=== PATIENT | female | born 1950 | race Caucasian/White ===

== ENCOUNTER 2017-01-03 13:42 | Emergency (ER) | payer MEDICARE, MEDICAID ==
[2017-01-03 14:31] VITALS: BP 141/77
--- NOTE | 2017-01-03 15:34 | EDM.PDOC ---
ED HPI GENERAL MEDICAL PROBLEM - General Chief Complaint: General Stated Complaint: ABNORMAL EKG Time Seen by Provider: 01/03/17 14:45 Source of Information: Reports: Patient, Provider History Limitations: Reports: No Limitations - History of Present Illness INITIAL COMMENTS - FREE TEXT/NARRATIVE: 66-year-old female who is having follow-up with her mental health provider 2 weeks ago mention to her that she was having intermittent chest pain. She describes to me that she's had it twice in the last year, unrelated to activity. Her provider asked her to come in and provide an EKG at her convenience, she came in to have that done today. The EKG showed some nonspecific T-wave changes, this was showed to Dr. Duron and he sent her to the emergency room. The EKG was not sent with the patient. She has not had any symptoms or pain for the last couple of weeks. Onset: Unknown/Unsure Location: Reports: Chest Severity: Mild Associated Symptoms: Reports: No Other Symptoms - Related Data Allergies Allergy/AdvReac Type Severity Reaction Status Date / Time bacitracin Allergy Severe Rash Verified 01/03/17 14:43 [From Neosporin ([id number])] bacitracin zinc Allergy Severe Rash Verified 01/03/17 14:43 [From Neosporin ([id number]-[id number])] neomycin sulfate Allergy Severe Rash Verified 01/03/17 14:43 [From Neosporin (ypm-tsq-dpuos)] polymyxin B Allergy Severe Rash Verified 01/03/17 14:43 [From Neosporin ([id number]-[id number])] nickel Allergy Cannot Verified 01/03/17 14:43 Remember Home Meds: Home Meds Acetaminophen 1,000 mg PO BID 09/27/14 [History] Aspirin [[place] Aspirin] 81 mg PO DAILY 09/27/14 [History] Levothyroxine 125 mcg PO DAILY 09/27/14 [History] Lisinopril 5 mg PO BID 09/27/14 [History] Metoprolol Tartrate 25 mg PO BID 09/27/14 [History] Mirtazapine 7.5 mg PO DAILY 09/27/14 [History] Montelukast Sodium 10 mg PO DAILY 09/27/14 [History] Multivit-Min/FA/Lycopene/Lut [Centrum Silver Tablet] 1 each PO DAILY 09/27/14 [ History] Niacin [Niacin ER] 500 mg PO DAILY 09/27/14 [History] Penicillin V Potassium 2,000 mg PO ASDIRECTED PRN 09/27/14 [History] Simvastatin [Zocor] 40 mg PO DAILY 09/27/14 [History] Trifluoperazine 5 mg PO BID 09/27/14 [History] glipiZIDE [Glipizide ER] 5 mg PO DAILY 09/27/14 [History] medroxyPROGESTERone [Provera] 10 mg PO DAILY 09/27/14 [History] metFORMIN HCl [Metformin HCl] 1,000 mg PO BID 09/27/14 [History] Albuterol [Proventil HFA] 2 puff INH QID PRN 01/03/17 [History] Benztropine [Cogentin] 1 mg PO BEDTIME 01/03/17 [History] Bismuth Subsalicylate [Pepto Bismol] 262 mg PO ASDIRECTED 01/03/17 [History] Dextromethorphan/guaiFENesin [Robitussin DM] 1 - 2 tsp PO ASDIRECTED 01/03/17 [ History] Diazepam [Valium] 1 tab PO BID PRN 01/03/17 [History] Nystatin 1 dose TOP ASDIRECTED 01/03/17 [History] Oxybutynin 2.5 mg PO BID 01/03/17 [History] Ranitidine HCl [Zantac] 1 tab PO BEDTIME 01/03/17 [History] Trifluoperazine 2 mg PO DAILY 01/03/17 [History] Past Medical History Other HEENT History: balance problems Cardiovascular History: Reports: High Cholesterol, Hypertension, Other (See Below) Other Cardiovascular History: inoperable aortic aneurysm. Musculoskeletal History: Reports: Arthritis Other Musculoskeletal History: degenerative joint disease. Other Neuro History: multifactorial imbalance, possible cerebellar atrophy. Other Psychiatric History: borderline personality disorder, periods of derrick Endocrine/Metabolic History: Reports: Diabetes, Type II, Hypothyroidism Social & Family History - Tobacco Use Smoking Status *Q: Heavy Tobacco Smoker Years of Tobacco use: 32 Packs/Tins Daily: 0.8 - Recreational Drug Use Recreational Drug Use: No ED ROS GENERAL - Review of Systems Review Of Systems: See Below Constitutional: Denies: Fever, Chills, Malaise Respiratory: Denies: Shortness of Breath Cardiovascular: Reports: Chest Pain GI/Abdominal: Denies: Nausea, Vomiting : Reports: No Symptoms Skin: Reports: No Symptoms Neurological: Denies: Headache ED EXAM, GENERAL - Physical Exam Exam: See Below Exam Limited By: No Limitations General Appearance: Alert, No Apparent Distress Respiratory/Chest: No Respiratory Distress, Lungs Clear, Other (She does have a little bit of discomfort with palpation of the anterior chest wall but it is not the same pain that she was complaining of) Cardiovascular: Regular Rate, Rhythm. No: Extra Beats GI/Abdominal: Soft, Non-Tender Neurological: Alert, Oriented Psychiatric: Normal Affect, Normal Mood Skin Exam: Warm, Dry EKG INTERPRETATION Rhythm: NSR ST-T: Other (Minimal T-wave changes from previous, no ST elevation or depression ) Course - Vital Signs Last Recorded V/S: Last Vital Signs Temp 98.1 F 01/03/17 14:40 Pulse 81 01/03/17 14:40 Resp 19 01/03/17 14:40 BP 141/77 H 01/03/17 14:40 Pulse Ox 95 01/03/17 14:40 - Re-Assessments/Exams Free Text/Narrative Re-Assessment/Exam: 01/03/17 15:34 This patient wants as little as possible done, but I do think it would be reasonable to do a chemically induced stress test. This can be done at the patient's convenience. This will be arranged with results being sent to Dr. Duron and Kelly Bernardo Departure - Departure Time of Disposition: 15:48 Disposition: Home, Self-Care 01 Condition: Good Clinical Impression: Atypical chest pain - Discharge Information Instructions: Nonspecific Chest Pain, [id number] Referrals: Livia Bernardo PA [Primary Care Provider] - Forms: ED Department Discharge Care Plan Goals: Continue your current medications and activity. Stress test will be scheduled in the near future, follow-up with Kelly Bernardo after the test is completed.
== END 2017-01-03 15:48 | disposition home or self-care (01) ==
LOC: JP.ED 13:42
DX: R07.89 Other chest pain (principal); I10 Essential (primary) hypertension; E11.9 Type 2 diabetes mellitus without complications; E03.9 Hypothyroidism, unspecified; Z79.82 Long term (current) use of aspirin; Z79.84 Long term (current) use of oral hypoglycemic drugs; Z79.899 Other long term (current) drug therapy; Z91.09 Other allergy status, other than to drugs and biological substances; Z88.1 Allergy status to other antibiotic agents; Z88.8 Allergy status to other drugs, medicaments and biological substances
CPT/HCPCS: 99284; 99285

== ENCOUNTER 2018-02-28 20:09 | Emergency (ER) | payer MEDICARE, MEDICAID ==
[2018-02-28] MEDS ORDERED: Bacitracin Oint 1 GM U/D Packet TOP ONE (20:40)
[2018-02-28 20:53] VITALS: BP 138/71
--- NOTE | 2018-02-28 21:24 | EDM.PDOC ---
ED HPI GENERAL MEDICAL PROBLEM - General Chief Complaint: Laceration Stated Complaint: [facility] Time Seen by Provider: 02/28/18 21:14 Source of Information: Reports: Patient, EMS History Limitations: Reports: No Limitations - History of Present Illness INITIAL COMMENTS - FREE TEXT/NARRATIVE: pt fell going to the kitchen ans she hit the upper lipm area. She did do alot of bleeding. She was not knocked out. Onset: Today, Sudden Duration: Hour(s): Location: Reports: Face Associated Symptoms: Reports: Other (laceration of the upper lip area. ) - Related Data Allergies Allergy/AdvReac Type Severity Reaction Status Date / Time bacitracin Allergy Severe Rash Verified 02/28/18 21:05 [From Neosporin ([id number]-iif-vfhqi)] bacitracin zinc Allergy Severe Rash Verified 02/28/18 21:05 [From Neosporin (qna-ocw-gaudg)] neomycin sulfate Allergy Severe Rash Verified 02/28/18 21:05 [From Neosporin (mwe-ekm-iadsp)] polymyxin B Allergy Severe Rash Verified 02/28/18 21:05 [From Neosporin (fon-yhn-nxitf)] nickel Allergy Cannot Verified 02/28/18 21:05 Remember Home Meds: Home Meds Acetaminophen 1,000 mg PO BID 09/27/14 [History] Aspirin [[place] Aspirin] 81 mg PO DAILY 09/27/14 [History] Levothyroxine 125 mcg PO DAILY 09/27/14 [History] Lisinopril 5 mg PO BID 09/27/14 [History] Metoprolol Tartrate 25 mg PO BID 09/27/14 [History] Mirtazapine 7.5 mg PO DAILY 09/27/14 [History] Montelukast Sodium 10 mg PO DAILY 09/27/14 [History] Multivit-Min/FA/Lycopene/Lut [Centrum Silver Tablet] 1 each PO DAILY 09/27/14 [ History] Niacin [Niacin ER] 500 mg PO DAILY 09/27/14 [History] Penicillin V Potassium 2,000 mg PO ASDIRECTED PRN 09/27/14 [History] Simvastatin [Zocor] 40 mg PO DAILY 09/27/14 [History] Trifluoperazine 5 mg PO BID 09/27/14 [History] glipiZIDE [Glipizide ER] 5 mg PO DAILY 09/27/14 [History] medroxyPROGESTERone [Provera] 10 mg PO DAILY 09/27/14 [History] metFORMIN HCl [Metformin HCl] 1,000 mg PO BID 09/27/14 [History] Albuterol [Proventil HFA] 2 puff INH QID PRN 01/03/17 [History] Benztropine [Cogentin] 1 mg PO BEDTIME 01/03/17 [History] Bismuth Subsalicylate [Pepto Bismol] 262 mg PO ASDIRECTED 01/03/17 [History] Dextromethorphan/guaiFENesin [Robitussin DM] 1 - 2 tsp PO ASDIRECTED 01/03/17 [ History] Diazepam [Valium] 1 tab PO BID PRN 01/03/17 [History] Nystatin 1 dose TOP ASDIRECTED 01/03/17 [History] Oxybutynin 2.5 mg PO BID 01/03/17 [History] Ranitidine HCl [Zantac] 1 tab PO BEDTIME 01/03/17 [History] Trifluoperazine 2 mg PO DAILY 01/03/17 [History] Past Medical History Other HEENT History: balance problems Cardiovascular History: Reports: High Cholesterol, Hypertension, Other (See Below) Other Cardiovascular History: inoperable aortic aneurysm. Musculoskeletal History: Reports: Arthritis Other Musculoskeletal History: degenerative joint disease. Other Neuro History: multifactorial imbalance, possible cerebellar atrophy. Other Psychiatric History: borderline personality disorder, periods of derrick Endocrine/Metabolic History: Reports: Diabetes, Type II, Hypothyroidism Social & Family History - Tobacco Use Smoking Status *Q: Current Every Day Smoker Years of Tobacco use: 45 Packs/Tins Daily: 0.5 Tobacco Use Comment: quit smoking a few days ago- using nicotine patch - Caffeine Use Caffeine Use: Reports: Coffee - Recreational Drug Use Recreational Drug Use: No ED ROS GENERAL - Review of Systems Review Of Systems: See Below Constitutional: Reports: No Symptoms HEENT: Reports: Other (laceration just under the nose. ) Respiratory: Reports: No Symptoms Cardiovascular: Reports: No Symptoms Endocrine: Reports: No Symptoms GI/Abdominal: Reports: No Symptoms : Reports: No Symptoms ED EXAM, SKIN/RASH Exam: See Below Text/Narrative:: pt has a 1 inch laceration under the nose area. Exam Limited By: No Limitations General Appearance: Alert, Anxious, Mild Distress Nose: Other (pt has a 1 inch laceration under the nose. This was not a through and through laceration. She does have some swelling of the inner upper lip with bruising. ) Throat/Mouth: Normal Inspection Head: Atraumatic, Other (pt was not knocked out. ) Neck: Normal Inspection Respiratory/Chest: No Respiratory Distress Cardiovascular: Regular Rate, Rhythm Course - Vital Signs Last Recorded V/S: Last Vital Signs Temp 36.8 C 02/28/18 21:08 Pulse 77 02/28/18 21:08 Resp 20 02/28/18 21:08 BP 138/71 02/28/18 21:08 Pulse Ox 97 02/28/18 21:08 - Orders/Labs/Meds Meds: Medications Discontinued Medications Generic Name Dose Route Start Last Admin Trade Name Bridgerq PRN Reason Stop Dose Admin Bacitracin 1 dose 02/28/18 20:40 02/28/18 21:45 Bacitracin Oint 1 Gm TOP 02/28/18 20:41 Not Given ONETIME ONE Lidocaine HCl 5 ml 02/28/18 20:39 02/28/18 21:14 Xylocaine-Mpf 1% INJECT 02/28/18 20:40 5 ml ONETIME ONE Administration - Re-Assessments/Exams Free Text/Narrative Re-Assessment/Exam: 02/28/18 21:34 pt is current with her tetanus. She has a 1 inch laceration under her nose area. The wound was cleansed well and pt requested no lidocaine. The wound was sutured with 5-0 chromic and 6-0 prolene. It was brought together nicely . She is allergic to most antibiotic ointments. She was dressed with a dry dressing. Departure - Departure Time of Disposition: 21:36 Disposition: Home, Self-Care 01 Condition: Fair Clinical Impression: Laceration - Discharge Information Instructions: Laceration Care, Adult, [id number] Referrals: PCP,None [Primary Care Provider] - Forms: ED Department Discharge Care Plan Goals: sr removal in 5-6 days. keep dry. rtc if redness or drainage.
== END 2018-02-28 21:51 | disposition home or self-care (01) ==
LOC: JP.ED 20:09
DX: S01.511A Laceration without foreign body of lip, initial encounter (principal); F17.210 Nicotine dependence, cigarettes, uncomplicated; E78.00 Pure hypercholesterolemia, unspecified; I10 Essential (primary) hypertension; E03.9 Hypothyroidism, unspecified; E11.9 Type 2 diabetes mellitus without complications; Z79.82 Long term (current) use of aspirin; Z79.84 Long term (current) use of oral hypoglycemic drugs; Z79.899 Other long term (current) drug therapy; W18.30XA Fall on same level, unspecified, initial encounter; Y92.000 Kitchen of unspecified non-institutional (private) residence as the place of occurrence of the external cause
CPT/HCPCS: 12011; 99284-25

== ENCOUNTER 2019-05-14 12:50 | Emergency (ER) | payer MEDICARE, MEDICAID ==
--- NOTE | 2019-05-14 14:31 | EDM.PDOCBH ---
<Grace Rayo - Last Filed: 05/14/19 15:36> ED HPI GENERAL MEDICAL PROBLEM - General Chief Complaint: Behavioral/Psych Stated Complaint: OFF MEDS Time Seen by Provider: 05/14/19 14:26 Source of Information: Reports: Patient History Limitations: Reports: No Limitations - History of Present Illness INITIAL COMMENTS - FREE TEXT/NARRATIVE: pt arrived by ambulance from the detention where she lives. She has been very out of control. Kaylee Jackson ashli a transport hold for her to come and be evaluated. She hs been very Manic. She has stopped taking her meds. It is Shane opinion that she needs to be in a in pt management for med changes. Onset: Today, Other (pt was very out of control today. The situation is not safe for otherr pts. ) Duration: Hour(s): Location: Reports: Generalized Associated Symptoms: Reports: Other (pt has been out of control with other pts. ) - Related Data Allergies Allergy/AdvReac Type Severity Reaction Status Date / Time bacitracin Allergy Severe Rash Verified 05/14/19 13:24 [From Neosporin ([id number])] bacitracin zinc Allergy Severe Rash Verified 05/14/19 13:24 [From Neosporin (yji-kfh-tvata)] neomycin sulfate Allergy Severe Rash Verified 05/14/19 13:24 [From Neosporin ([id number]-qrw-oagwg)] polymyxin B Allergy Severe Rash Verified 05/14/19 13:24 [From Neosporin ([id number]-mcc-crvpm)] nickel Allergy Cannot Verified 05/14/19 13:24 Remember Home Meds: Home Meds Acetaminophen 1,000 mg PO BID 09/27/14 [History] Aspirin [[place] Aspirin] 81 mg PO DAILY 09/27/14 [History] Levothyroxine 125 mcg PO DAILY 09/27/14 [History] Lisinopril 5 mg PO BID 09/27/14 [History] Multivit-Min/FA/Lycopen/Lutein [Centrum Silver Tablet] 1 each PO DAILY 09/27/14 [History] Niacin [Niacin ER] 500 mg PO DAILY 09/27/14 [History] Penicillin V Potassium 2,000 mg PO ASDIRECTED PRN 09/27/14 [History] Simvastatin [Zocor] 40 mg PO DAILY 09/27/14 [History] glipiZIDE [Glipizide ER] 5 mg PO DAILY 09/27/14 [History] medroxyPROGESTERone [Provera] 10 mg PO DAILY 09/27/14 [History] metFORMIN HCl [Metformin HCl] 1,000 mg PO BID 09/27/14 [History] Albuterol [Proventil HFA] 2 puff INH QID PRN 01/03/17 [History] Benztropine [Cogentin] 1 mg PO BEDTIME 01/03/17 [History] Bismuth Subsalicylate [Pepto Bismol] 262 mg PO ASDIRECTED 01/03/17 [History] Diazepam [Valium] 1 tab PO BID PRN 01/03/17 [History] Oxybutynin 2.5 mg PO BID 01/03/17 [History] Ranitidine HCl [Zantac] 1 tab PO BEDTIME 01/03/17 [History] Metoprolol Succinate [Toprol XL] 25 mg PO DAILY 05/14/19 [History] Perphenazine 4 mg PO DAILY 05/14/19 [History] Perphenazine 8 mg PO BEDTIME 05/14/19 [History] amLODIPine [Norvasc] 2.5 mg PO DAILY 05/14/19 [History] lamoTRIgine [Lamictal] 100 mg PO DAILY 05/14/19 [History] Past Medical History Other HEENT History: balance problems Cardiovascular History: Reports: High Cholesterol, Hypertension, Other (See Below) Other Cardiovascular History: inoperable aortic aneurysm. Musculoskeletal History: Reports: Arthritis Other Musculoskeletal History: degenerative joint disease. Other Neuro History: multifactorial imbalance, possible cerebellar atrophy. Psychiatric History: Reports: Schizophrenia Other Psychiatric History: borderline personality disorder, periods of derrick Endocrine/Metabolic History: Reports: Diabetes, Type II, Hypothyroidism Social & Family History - Tobacco Use Smoking Status *Q: Unknown Ever Smoked - Caffeine Use Caffeine Use: Reports: None - Recreational Drug Use Recreational Drug Use: No ED ROS GENERAL - Review of Systems Review Of Systems: See Below Constitutional: Reports: Other (pt is out of control) HEENT: Reports: No Symptoms Respiratory: Reports: No Symptoms Cardiovascular: Reports: No Symptoms Endocrine: Reports: No Symptoms GI/Abdominal: Reports: No Symptoms : Reports: No Symptoms Musculoskeletal: Reports: No Symptoms Skin: Reports: No Symptoms Neurological: Reports: No Symptoms Psychiatric: Reports: Agitation, Anxiety, Other (pt is out of control and is leaving the facility with her scooter and does not return. ) ED EXAM, BEHAVIORAL HEALTH - Physical Exam Exam: See Below Text/Narrative:: pt has been very out of control, not taking meds. She is refusing any med changes. Her Derrick has been intolerable in the detention. She has been leaving and not returning. Exam Limited By: No Limitations General Appearance: Alert, Anxious, Moderate Distress Ears: Normal TMs Nose: Normal Inspection Throat/Mouth: Normal Inspection Neck: Normal Inspection Respiratory/Chest: No Respiratory Distress Cardiovascular: Regular Rate, Rhythm GI/Abdominal: Soft, Non-Tender (Female) Exam: Deferred, Other ( since she has been so manic she has lost alot of weight. ) Rectal (Female) Exam: Deferred Neurological: Alert, Other (pt is swearing and is quite out of control. She is not physically trying to harm anyone. ) Psychiatric: Alert COURSE, BEHAVIORAL HEALTH COMP - Course Orders, Labs, Meds: Laboratory Tests 05/14/19 05/14/19 05/14/19 Range/Units 13:12 13:12 13:12 WBC 7.6 (4.5-11.0) K/uL RBC 3.88 (3.30-5.50) M/uL Hgb 11.7 L (12.0-15.0) g/dL Hct 37.6 (36.0-48.0) % MCV 97 (80-98) fL MCH 30 (27-31) pg MCHC 31 L (32-36) % Plt Count 207 (150-400) K/uL Neut % (Auto) 67 H (36-66) % Lymph % (Auto) 25 (24-44) % Isabela % (Auto) 7 H (2-6) % Eos % (Auto) 1 L (2-4) % Baso % (Auto) 0 (0-1) % Sodium 139 L (140-148) mmol/L Potassium 4.1 (3.6-5.2) mmol/L Chloride 100 (100-108) mmol/L Carbon Dioxide 29 (21-32) mmol/L Anion Gap 14.1 H (5.0-14.0) mmol/L BUN 24 H (7-18) mg/dL Creatinine 1.0 (0.6-1.0) mg/dL Est Cr Clr Drug Dosing TNP Estimated GFR (MDRD) 55 L (>60) Glucose 224 H (74-106) mg/dL Calcium 9.7 (8.5-10.1) mg/dL Total Bilirubin 0.3 (0.2-1.0) mg/dL AST 14 L (15-37) U/L ALT 21 (12-78) U/L Alkaline Phosphatase 85 (46-116) U/L Total Protein 6.7 (6.4-8.2) g/dL Albumin 3.2 L (3.4-5.0) g/dL Globulin 3.5 (2.3-3.5) g/dL Albumin/Globulin Ratio 0.9 L (1.2-2.2) TSH, Ultra Sensitive (0.358-3.740) uIU/mL Urine Color (YELLOW) Urine Appearance (CLEAR) Urine pH (5.0-8.0) Ur Specific Dowell (1.008-1.030) Urine Protein (NEGATIVE) mg/dL Urine Glucose (UA) (NEGATIVE) mg/dL Urine Ketones (NEGATIVE) mg/dL Urine Occult Blood (NEGATIVE) Urine Nitrite (NEGATIVE) Urine Bilirubin (NEGATIVE) Urine Urobilinogen (0.2-1.0) EU/dL Ur Leukocyte Esterase (NEGATIVE) Urine RBC (0-5) Urine WBC (0-5) Ur Epithelial Cells Amorphous Sediment Urine Bacteria Urine Mucus Urine Opiates Screen (NEGATIVE) Ur Oxycodone Screen (NEGATIVE) Urine Methadone Screen (NEGATIVE) Ur Propoxyphene Screen (NEGATIVE) Ur Barbiturates Screen (NEGATIVE) Ur Tricyclics Screen (NEGATIVE) Ur Phencyclidine Scrn (NEGATIVE) Ur Amphetamine Screen (NEGATIVE) U Methamphetamines Scrn (NEGATIVE) Urine MDMA Screen (NEGATIVE) U Benzodiazepines Scrn (NEGATIVE) U Cocaine Metab Screen (NEGATIVE) U Marijuana (THC) Screen (NEGATIVE) Ethyl Alcohol < 3 mg/dL 05/14/19 05/14/19 05/14/19 Range/Units 13:45 13:45 14:25 WBC (4.5-11.0) K/uL RBC (3.30-5.50) M/uL Hgb (12.0-15.0) g/dL Hct (36.0-48.0) % MCV (80-98) fL MCH (27-31) pg MCHC (32-36) % Plt Count (150-400) K/uL Neut % (Auto) (36-66) % Lymph % (Auto) (24-44) % Isabela % (Auto) (2-6) % Eos % (Auto) (2-4) % Baso % (Auto) (0-1) % Sodium (140-148) mmol/L Potassium (3.6-5.2) mmol/L Chloride (100-108) mmol/L Carbon Dioxide (21-32) mmol/L Anion Gap (5.0-14.0) mmol/L BUN (7-18) mg/dL Creatinine (0.6-1.0) mg/dL Est Cr Clr Drug Dosing Estimated GFR (MDRD) (>60) Glucose (74-106) mg/dL Calcium (8.5-10.1) mg/dL Total Bilirubin (0.2-1.0) mg/dL AST (15-37) U/L ALT (12-78) U/L Alkaline Phosphatase (46-116) U/L Total Protein (6.4-8.2) g/dL Albumin (3.4-5.0) g/dL Globulin (2.3-3.5) g/dL Albumin/Globulin Ratio (1.2-2.2) TSH, Ultra Sensitive 1.692 (0.358-3.740) uIU/mL Urine Color Yellow (YELLOW) Urine Appearance Slightly cloudy A (CLEAR) Urine pH 7.0 (5.0-8.0) Ur Specific Dowell 1.020 (1.008-1.030) Urine Protein Negative (NEGATIVE) mg/dL Urine Glucose (UA) Negative (NEGATIVE) mg/dL Urine Ketones Negative (NEGATIVE) mg/dL Urine Occult Blood Negative (NEGATIVE) Urine Nitrite Negative (NEGATIVE) Urine Bilirubin Negative (NEGATIVE) Urine Urobilinogen 0.2 (0.2-1.0) EU/dL Ur Leukocyte Esterase Small H (NEGATIVE) Urine RBC 0-5 (0-5) Urine WBC 0-5 (0-5) Ur Epithelial Cells Few Amorphous Sediment Few Urine Bacteria Not seen Urine Mucus Not seen Urine Opiates Screen Negative (NEGATIVE) Ur Oxycodone Screen Negative (NEGATIVE) Urine Methadone Screen Negative (NEGATIVE) Ur Propoxyphene Screen Negative (NEGATIVE) Ur Barbiturates Screen Negative (NEGATIVE) Ur Tricyclics Screen Negative (NEGATIVE) Ur Phencyclidine Scrn Negative (NEGATIVE) Ur Amphetamine Screen Negative (NEGATIVE) U Methamphetamines Scrn Negative (NEGATIVE) Urine MDMA Screen Negative (NEGATIVE) U Benzodiazepines Scrn Negative (NEGATIVE) U Cocaine Metab Screen Negative (NEGATIVE) U Marijuana (THC) Screen Negative (NEGATIVE) Ethyl Alcohol mg/dL Medications Discontinued Medications Generic Name Dose Route Start Last Admin Trade Name Fretera PRN Reason Stop Dose Admin Acetaminophen 1,000 mg 05/14/19 22:48 05/14/19 23:49 Tylenol Extra Strength PO 05/14/19 22:49 1,000 mg ONETIME ONE Administration Benztropine Mesylate 1 mg 05/14/19 22:25 05/14/19 22:44 Cogentin PO 05/14/19 22:26 1 mg ONETIME ONE Administration Diazepam 5 mg 05/14/19 16:25 05/14/19 17:01 Valium. PO 05/14/19 16:26 Not Given ONETIME ONE Diazepam 5 mg 05/14/19 22:25 05/15/19 00:02 Valium. PO 05/14/19 22:26 Not Given ONETIME ONE Glipizide 5 mg 05/14/19 18:05 05/14/19 18:18 Glucotrol Xl PO 05/14/19 18:06 5 mg ONETIME ONE Administration Glipizide Confirm 05/14/19 19:20 05/14/19 19:27 Glucotrol Xl Administered 05/14/19 19:21 Not Given Dose 5 mg .ROUTE .STK-MED ONE Haloperidol 5 mg 05/14/19 22:39 05/15/19 00:01 Haldol PO 05/14/19 22:40 Not Given ONETIME ONE Lamotrigine 100 mg 05/14/19 16:25 05/14/19 17:00 Lamotrigine PO 05/14/19 16:26 Not Given ONETIME ONE Metformin HCl 1,000 mg 05/14/19 18:04 05/14/19 18:18 Glucophage PO 05/14/19 18:05 1,000 mg ONETIME ONE Administration Medical Clearance: 05/14/19 14:36 lab work looks good. BS is 224. drug screen is neg. etoh is neg. 05/14/19 14:37 Will try to find placement for her at [facility] in [place]. 05/14/19 15:36 Departure - Departure Disposition: DC/Tfer to [facility] Clinical Impression: Bipolar 1 disorder, manic, moderate Schizophrenia Qualifiers: Schizophrenia type: schizophreniform disorder Qualified Code(s): F20.81 - Schizophreniform disorder - Discharge Information Instructions: Schizophrenia Referrals: PCP,None [Primary Care Provider] - Forms: ED Department Discharge Care Plan Goals: Patient will be transferred back to her detention where hopefully she will eventually be referred to a [facility] inpatient facility when available. Sepsis Event Note - Focused Exam Date Exam was Performed: 05/14/19 Time Exam was Performed: 15:36 <Suresh Melton - Last Filed: 05/15/19 01:11> COURSE, BEHAVIORAL HEALTH COMP - Course Medical Clearance: 05/15/19 00:11 After 6 [address] of [address] to [address] this patient into an inpatient facility, we could not get her into a state facility because they were "full", and we could not get her accepted into a private facility because commitment processes were already started by the [facility] which made it some type of legality for the private facilities. Dr. Virk, medical esthetician of the [facility] psychiatric services was very helpful in attempting to try to place this patient, but we were unsuccessful. She was eventually transferred back to her detention where hopefully they can expedite a placement into [facility]. She was not cooperative with taking her regular medications, but did take acetaminophen and Cogentin. She continued to be mildly agitated and disruptive but did slowly calm down over time. Departure - Departure Time of Disposition: 00:48 Sepsis Event Note - Focused Exam Date Exam was Performed: 05/15/19 Time Exam was Performed: 01:10
[2019-05-14] MEDS ORDERED: Diazepam 5 MG Tab PO ONE ×2 (16:25→22:25)
[2019-05-14] MEDS ORDERED: lamoTRIgine 100 MG Tab PO ONE (16:25)
[2019-05-14] MEDS ORDERED: metFORMIN 500 MG Tab PO ONE (18:04)
[2019-05-14] MEDS ORDERED: glipiZIDE 5 MG Tab.ER PO ONE (18:05)
[2019-05-14] MEDS ORDERED: glipiZIDE 5 MG Tab.ER ONE (19:20)
[2019-05-14] MEDS ORDERED: Benztropine 1 MG Tab PO ONE (22:25)
[2019-05-14] MEDS ORDERED: Haloperidol 5 MG Tab PO ONE (22:39)
[2019-05-14] MEDS ORDERED: Acetaminophen 500 MG Tab PO ONE (22:48)
== END 2019-05-15 00:47 ==
LOC: JP.ED 12:50
DX: F20.81 Schizophreniform disorder (principal); I10 Essential (primary) hypertension; E78.00 Pure hypercholesterolemia, unspecified; E11.9 Type 2 diabetes mellitus without complications; E03.9 Hypothyroidism, unspecified; Z79.84 Long term (current) use of oral hypoglycemic drugs; Z88.1 Allergy status to other antibiotic agents; Z88.8 Allergy status to other drugs, medicaments and biological substances; Z79.82 Long term (current) use of aspirin; Z79.899 Other long term (current) drug therapy
CPT/HCPCS: 36415; 80053; 80305; 80307; 81001; 84443; 85025; 99284; 99285; A9270

== ENCOUNTER 2019-06-19 15:55 | Emergency (ER) | payer MEDICARE, MEDICAID ==
[2019-06-19] MEDS ORDERED: metFORMIN 500 MG Tab ONE (19:10)
[2019-06-19] MEDS ORDERED: glipiZIDE 5 MG Tab.ER ONE (19:13)
[2019-06-19] MEDS ORDERED: Ibuprofen 400 MG Tab PO ONE (21:58)
[2019-06-20] MEDS ORDERED: lamoTRIgine 100 MG Tab PO ONE (00:28)
[2019-06-20] MEDS ORDERED: risperiDONE 1 MG Tab PO STA (00:29)
--- NOTE | 2019-06-20 00:30 | EDM.PDOCBH ---
<Sudheer Jolley G - Last Filed: 06/20/19 00:30> ED HPI GENERAL MEDICAL PROBLEM - General Chief Complaint: Behavioral/Psych Stated Complaint: EVAL Time Seen by Provider: 06/20/19 08:18 - Related Data Allergies Allergy/AdvReac Type Severity Reaction Status Date / Time bacitracin Allergy Severe Rash Verified 05/14/19 13:24 [From Neosporin ([id number])] bacitracin zinc Allergy Severe Rash Verified 05/14/19 13:24 [From Neosporin ([id number])] neomycin sulfate Allergy Severe Rash Verified 05/14/19 13:24 [From Neosporin (mhc-[id number])] polymyxin B Allergy Severe Rash Verified 05/14/19 13:24 [From Neosporin ([id number])] nickel Allergy Cannot Verified 05/14/19 13:24 Remember metal gonzalo Allergy Other Uncoded 06/19/19 21:45 Home Meds: Home Meds Acetaminophen 1,000 mg PO BID 09/27/14 [History] Aspirin [[place] Aspirin] 325 mg PO DAILY 09/27/14 [History] Levothyroxine 125 mcg PO DAILY 09/27/14 [History] Lisinopril 5 mg PO DAILY 09/27/14 [History] Penicillin V Potassium 2,000 mg PO ASDIRECTED PRN 09/27/14 [History] Simvastatin [Zocor] 40 mg PO BEDTIME 09/27/14 [History] glipiZIDE [Glipizide ER] 10 mg PO DAILY 09/27/14 [History] medroxyPROGESTERone [Provera] 10 mg PO DAILY 09/27/14 [History] metFORMIN HCl [Metformin HCl] 1,000 mg PO BID 09/27/14 [History] Albuterol [Proventil HFA] 2 puff INH QID PRN 01/03/17 [History] Benztropine [Cogentin] 1 mg PO DAILY 01/03/17 [History] Bismuth Subsalicylate [Pepto Bismol] 262 mg PO ASDIRECTED 01/03/17 [History] Diazepam [Valium] 1 tab PO BID PRN 01/03/17 [History] Oxybutynin 15 mg PO DAILY 01/03/17 [History] Metoprolol Succinate [Toprol XL] 25 mg PO DAILY 05/14/19 [History] Perphenazine 4 mg PO DAILY 05/14/19 [History] Perphenazine 8 mg PO BEDTIME 05/14/19 [History] amLODIPine [Norvasc] 2.5 mg PO DAILY 05/14/19 [History] Loratadine 10 mg PO DAILY 06/19/19 [History] risperiDONE 1 tab PO BEDTIME 06/19/19 [History] risperiDONE 1 tab PO DAILY 06/19/19 [History] Past Medical History HEENT History: Reports: Other (See Below) Other HEENT History: deviated septum Cardiovascular History: Reports: Aneurysm, Heart Failure, High Cholesterol, Hypertension, Other (See Below) Other Cardiovascular History: descending thoracuc aorta aneurysm, bilateral common iliac arterty aneurysms Respiratory History: Reports: COPD Genitourinary History: Reports: Chronic Renal Insuffiency, Other (See Below) Other Genitourinary History: nephrocalcinosis Musculoskeletal History: Reports: Arthritis, Fracture, Osteoarthritis Other Musculoskeletal History: degenerative joint disease. 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 Psychiatric History: Reports: Bipolar Other Psychiatric History: schizoaffective disorder- bipolar type Endocrine/Metabolic History: Reports: Diabetes, Type II, Hypothyroidism, Other ( See Below) Other Endocrine/Metabolic History: Dysmetabolic syndrome X - Past Surgical History Musculoskeletal Surgical History: Reports: Knee Replacement, Shoulder Surgery Social & Family History - Caffeine Use Caffeine Use: Reports: None COURSE, BEHAVIORAL HEALTH COMP - Course Vital Signs: Last Vital Signs Temp 97.4 F 06/20/19 07:53 Pulse 85 06/20/19 07:53 Resp 16 06/20/19 07:53 BP 130/80 06/20/19 07:53 Pulse Ox 96 06/20/19 07:53 Orders, Labs, Meds: Active Orders 24 hr Category Date Time Status Aspirin Med 06/20/19 08:13 Once 324 mg PO ONETIME ONE Benztropine [Cogentin] Med 06/20/19 08:13 Once 1 mg PO ONETIME ONE Levothyroxine Med 06/20/19 08:13 Once 25 mcg PO ONETIME ONE Levothyroxine [Synthroid] Med 06/21/19 07:30 Ordered 100 mcg PO ACBREAKFAST Metoprolol Succinate [Toprol XL] Med 06/20/19 08:13 Once 25 mg PO ONETIME ONE amLODIPine [Norvasc] Med 06/20/19 08:13 Once 2.5 mg PO ONETIME ONE glipiZIDE [Glucotrol XL] Med 06/20/19 08:13 Stat 10 mg PO NOW STA lisinopriL [Prinivil] Med 06/20/19 08:13 Once 5 mg PO ONETIME ONE medroxyPROGESTERone [Provera] Med 06/20/19 08:13 Once 10 mg PO ONETIME ONE metFORMIN [Glucophage] Med 06/20/19 08:13 Once 1,000 mg PO ONETIME ONE Laboratory Tests 06/19/19 06/19/19 06/19/19 Range/Units 16:43 16:43 16:43 WBC 8.2 (4.5-11.0) K/uL RBC 3.89 (3.30-5.50) M/uL Hgb 11.7 L (12.0-15.0) g/dL Hct 37.4 (36.0-48.0) % MCV 96 (80-98) fL MCH 30 (27-31) pg MCHC 31 L (32-36) % Plt Count 237 (150-400) K/uL Neut % (Auto) 71 H (36-66) % Lymph % (Auto) 19 L (24-44) % [place] % (Auto) 8 H (2-6) % Eos % (Auto) 2 (2-4) % Baso % (Auto) 0 (0-1) % Sodium 133 L (140-148) mmol/L Potassium 4.3 (3.6-5.2) mmol/L Chloride 99 L (100-108) mmol/L Carbon Dioxide 26 (21-32) mmol/L Anion Gap 12.3 (5.0-14.0) mmol/L BUN 21 H (7-18) mg/dL Creatinine 1.0 (0.6-1.0) mg/dL Est Cr Clr Drug Dosing TNP Estimated GFR (MDRD) 55 L (>60) Glucose 134 H (74-106) mg/dL Calcium 9.6 (8.5-10.1) mg/dL Total Bilirubin 0.3 (0.2-1.0) mg/dL AST 11 L (15-37) U/L ALT 19 (12-78) U/L Alkaline Phosphatase 92 (46-116) U/L Total Protein 7.2 (6.4-8.2) g/dL Albumin 3.5 (3.4-5.0) g/dL Globulin 3.7 H (2.3-3.5) g/dL Albumin/Globulin Ratio 1.0 L (1.2-2.2) TSH, Ultra Sensitive 2.755 (0.358-3.740) uIU/mL Urine Color Yellow (YELLOW) Urine Appearance Clear (CLEAR) Urine pH 6.0 (5.0-8.0) Ur Specific [place] 1.015 (1.008-1.030) Urine Protein Negative (NEGATIVE) mg/dL Urine Glucose (UA) Negative (NEGATIVE) mg/dL Urine Ketones Negative (NEGATIVE) mg/dL Urine Occult Blood Negative (NEGATIVE) Urine Nitrite Negative (NEGATIVE) Urine Bilirubin Negative (NEGATIVE) Urine Urobilinogen 0.2 (0.2-1.0) EU/dL Ur Leukocyte Esterase Negative (NEGATIVE) Urine RBC Not seen (0-5) Urine WBC Not seen (0-5) Ur Epithelial Cells Rare Amorphous Sediment Not seen Urine Bacteria Not seen Urine Mucus Not seen Medications Discontinued Medications Generic Name Dose Route Start Last Admin Trade Name Jeff PRN Reason Stop Dose Admin Amitriptyline HCl Confirm 06/19/19 18:02 Elavil Administered 06/19/19 18:03 Dose 50 mg .ROUTE .STK-MED ONE Glipizide Confirm 06/19/19 19:13 Glucotrol Xl Administered 06/19/19 19:14 Dose 10 mg .ROUTE .STK-MED ONE Ibuprofen 400 mg 06/19/19 21:58 06/19/19 22:24 Motrin PO 06/19/19 21:59 400 mg ONETIME ONE Administration Lamotrigine 100 mg 06/20/19 00:28 06/20/19 06:58 Lamotrigine PO 06/20/19 00:29 Not Given ONETIME ONE Metformin HCl Confirm 06/19/19 19:10 Glucophage Administered 06/19/19 19:11 Dose 1,000 mg .ROUTE .STK-MED ONE Perphenazine 8 mg 06/20/19 00:27 06/20/19 06:58 Perphenazine PO 06/20/19 00:28 Not Given NOW STA Risperidone 1 mg 06/20/19 21:00 Risperidal PO BEDTIME DUC Risperidone 1 mg 06/20/19 00:29 06/20/19 06:58 Risperidal PO 06/20/19 00:30 Not Given NOW STA Departure - Departure Disposition: DC/Tfer to Psych Hosp/Unit [facility] Clinical Impression: Bipolar 1 disorder, manic, moderate - Discharge Information Referrals: PCP,None [Primary Care Provider] - Forms: ED Department Discharge Sepsis Event Note - Evaluation Sepsis Screening Result: No Definite Risk - Focused Exam Vital Signs: Vital Signs Temp Pulse Resp BP Pulse Ox 06/20/19 07:53 97.4 F 85 16 130/80 96 Date Exam was Performed: 06/20/19 Time Exam was Performed: 00:30 - My Orders Last 24 Hours: My Active Orders 06/20/19 08:13 Aspirin 324 mg PO ONETIME ONE Benztropine [Cogentin] 1 mg PO ONETIME ONE Levothyroxine 25 mcg PO ONETIME ONE Metoprolol Succinate [Toprol XL] 25 mg PO ONETIME ONE amLODIPine [Norvasc] 2.5 mg PO ONETIME ONE glipiZIDE [Glucotrol XL] 10 mg PO NOW STA lisinopriL [Prinivil] 5 mg PO ONETIME ONE medroxyPROGESTERone [Provera] 10 mg PO ONETIME ONE metFORMIN [Glucophage] 1,000 mg PO ONETIME ONE 06/21/19 07:30 Levothyroxine [Synthroid] 100 mcg PO ACBREAKFAST - Assessment/Plan Last 24 Hours: My Active Orders 06/20/19 08:13 Aspirin 324 mg PO ONETIME ONE Benztropine [Cogentin] 1 mg PO ONETIME ONE Levothyroxine 25 mcg PO ONETIME ONE Metoprolol Succinate [Toprol XL] 25 mg PO ONETIME ONE amLODIPine [Norvasc] 2.5 mg PO ONETIME ONE glipiZIDE [Glucotrol XL] 10 mg PO NOW STA lisinopriL [Prinivil] 5 mg PO ONETIME ONE medroxyPROGESTERone [Provera] 10 mg PO ONETIME ONE metFORMIN [Glucophage] 1,000 mg PO ONETIME ONE 06/21/19 07:30 Levothyroxine [Synthroid] 100 mcg PO ACBREAKFAST <Isacc Walker - Last Filed: 06/20/19 08:21> ED HPI GENERAL MEDICAL PROBLEM - General Source of Information: Reports: Patient, RN Notes Reviewed (Caregiver), Other History Limitations: Reports: Physical Impairment - History of Present Illness INITIAL COMMENTS - FREE TEXT/NARRATIVE: 68-year-old female presents to the emergency department from a [facility] her caregiver is present she has known history of schizoaffective disorder and bipolar she has been refusing her medications for the last 5 days she has become uncontrollable for the staff at home to take care of. She is her own guardian. She is very manic at this time difficult to obtain any history from her therefore the majority of this is taken from past medical history ED ROS GENERAL - Review of Systems Review Of Systems: See Below Psychiatric: Reports: Other (Manic and tangential) ED EXAM, BEHAVIORAL HEALTH - Physical Exam Exam: See Below Exam Limited By: Physical Impairment General Appearance: Alert, No Apparent Distress Psychiatric: Alert, Restless, Flight of Ideas, Tangential Thoughts, Grandiose Thoughts, Pressured Speech. No: Suicidal Plan, Auditory Hallucinations, Threatening Behavior Departure - Departure Time of Disposition: 08:21 Condition: Poor Sepsis Event Note - Focused Exam Date Exam was Performed: 06/20/19 Time Exam was Performed: 08:17 - Assessment/Plan Plan: Assessment Acuity = acute Site and laterality = manic state complicated patient with history of bipolar and schizoaffective disorder Etiology = off medications Manifestations = none Location of injury = Home Lab values = CBC, CMP, thyroid, urinalysis all within normal limits Plan Acceptance was granted [facility] in [place] she will be transported via psychiatric transport This note was dictated using [employer] voice recognition software please call with any questions on syntax or grammar.
[2019-06-20] MEDS ORDERED: Aspirin 81 MG Tab.Chew PO ONE (08:13)
[2019-06-20] MEDS ORDERED: Benztropine 1 MG Tab PO ONE (08:13)
[2019-06-20] MEDS ORDERED: amLODIPine 5 MG Tab PO ONE (08:13)
[2019-06-20] MEDS ORDERED: metFORMIN 500 MG Tab PO ONE (08:13)
[2019-06-20] MEDS ORDERED: Levothyroxine 25 MCG Tab PO ONE (08:13)
[2019-06-20] MEDS ORDERED: Lisinopril 5 MG Tab PO ONE (08:13)
[2019-06-20] MEDS ORDERED: glipiZIDE 5 MG Tab.ER PO STA (08:13)
[2019-06-20] MEDS ORDERED: Metoprolol Succinate 25 MG Tab.ER PO ONE (08:13)
[2019-06-20 08:52] VITALS: BP 130/79; PULSE 79
[2019-06-20] MEDS ORDERED: risperiDONE 1 MG Tab PO SCH (21:00)
[2019-06-21] MEDS ORDERED: Levothyroxine 100 MCG Tab PO SCH (07:30)
== END 2019-06-20 09:15 ==
LOC: JP.ED 15:55
DX: F31.32 Bipolar disorder, current episode depressed, moderate (principal); I13.0 Hypertensive heart and chronic kidney disease with heart failure and stage 1 through stage 4 chronic kidney disease, or unspecified chronic kidney disease; E11.22 Type 2 diabetes mellitus with diabetic chronic kidney disease; I50.9 Heart failure, unspecified; N18.9 Chronic kidney disease, unspecified; E78.00 Pure hypercholesterolemia, unspecified; J44.9 Chronic obstructive pulmonary disease, unspecified; M19.90 Unspecified osteoarthritis, unspecified site; E03.9 Hypothyroidism, unspecified; Z88.1 Allergy status to other antibiotic agents; Z91.048 Other nonmedicinal substance allergy status; Z79.82 Long term (current) use of aspirin; Z79.899 Other long term (current) drug therapy; Z79.84 Long term (current) use of oral hypoglycemic drugs
CPT/HCPCS: 36415; 80053; 81001; 84443; 85025; 99284; 99285; A9270

== ENCOUNTER 2019-10-22 18:51 | Emergency (ER) | payer MEDICARE, MEDICAID ==
[2019-10-22 18:54] VITALS: BP 154/96; PULSE 97
--- NOTE | 2019-10-22 19:17 | EDM.PDOC ---
ED HPI GENERAL MEDICAL PROBLEM - General Chief Complaint: General Stated Complaint: MEDICAL VIA [facility] Time Seen by Provider: 10/22/19 19:04 Source of Information: Reports: Patient History Limitations: Reports: No Limitations - History of Present Illness INITIAL COMMENTS - FREE TEXT/NARRATIVE: Patient presents by ambulance from her assisted setting for evaluation of a head injury sustained after she tripped going over the threshold of the door, bumped into the door jam on the way down and then landed on her buttocks. She did not strike her head on the floor. There was no loss of consciousness. She was found to have a posterior scalp hematoma and staff was concerned as the patient had fallen twice in the last 24 hours. When I asked the patient about this, she states that she falls because the wheels of the walker she uses stick and do not go over the threshold of the doorways where she lives. Consequently when she cannot move forward by the wheeled walker she may have momentum and tipped forward falling into the door frame and any other object in the way. She has no new acute uncomfortable areas other than tenderness in the right posterior scalp. Specifically upper extremities, shoulder regions, hips are nontender. Onset: Today Duration: Hour(s): (1) Location: Reports: Head (Posterior scalp bump.) Quality: Reports: Dull Severity: Mild Improves with: Reports: None Worsens with: Reports: Movement Associated Symptoms: Reports: No Other Symptoms - Related Data Allergies Allergy/AdvReac Type Severity Reaction Status Date / Time bacitracin Allergy Severe Rash Verified 10/22/19 19:21 [From Neosporin ([id number])] bacitracin zinc Allergy Severe Rash Verified 10/22/19 19:21 [From Neosporin (osh-jnd-lusqy)] neomycin sulfate Allergy Severe Rash Verified 10/22/19 19:21 [From Neosporin ([id number])] polymyxin B Allergy Severe Rash Verified 10/22/19 19:21 [From Neosporin ([id number]-ojk-jaxpt)] nickel Allergy Cannot Verified 10/22/19 19:21 Remember metal gonzalo Allergy Other Uncoded 10/22/19 19:21 Home Meds: Home Meds Acetaminophen 1,000 mg PO BID 09/27/14 [History] Aspirin [[place] Aspirin] 325 mg PO DAILY 09/27/14 [History] Levothyroxine 125 mcg PO DAILY 09/27/14 [History] Lisinopril 5 mg PO DAILY 09/27/14 [History] Penicillin V Potassium 2,000 mg PO ASDIRECTED PRN 09/27/14 [History] Simvastatin [Zocor] 40 mg PO BEDTIME 09/27/14 [History] glipiZIDE [Glipizide ER] 10 mg PO DAILY 09/27/14 [History] medroxyPROGESTERone [Provera] 10 mg PO DAILY 09/27/14 [History] metFORMIN HCl [Metformin HCl] 1,000 mg PO BID 09/27/14 [History] Albuterol [Proventil HFA] 2 puff INH QID PRN 01/03/17 [History] Benztropine [Cogentin] 1 mg PO DAILY 01/03/17 [History] Bismuth Subsalicylate [Pepto Bismol] 262 mg PO ASDIRECTED 01/03/17 [History] Diazepam [Valium] 1 tab PO BID PRN 01/03/17 [History] Oxybutynin 15 mg PO DAILY 01/03/17 [History] Metoprolol Succinate [Toprol XL] 25 mg PO DAILY 05/14/19 [History] Perphenazine 4 mg PO DAILY 05/14/19 [History] Perphenazine 8 mg PO BEDTIME 05/14/19 [History] amLODIPine [Norvasc] 2.5 mg PO DAILY 05/14/19 [History] Loratadine 10 mg PO DAILY 06/19/19 [History] risperiDONE 1 tab PO BEDTIME 06/19/19 [History] risperiDONE 1 tab PO DAILY 06/19/19 [History] Past Medical History HEENT History: Reports: Other (See Below) Other HEENT History: balance problems Cardiovascular History: Reports: High Cholesterol, Hypertension, Other (See Below) Other Cardiovascular History: inoperable aortic aneurysm. Respiratory History: Reports: COPD Genitourinary History: Reports: Chronic Renal Insuffiency, Other (See Below) Other Genitourinary History: nephrocalcinosis Musculoskeletal History: Reports: Arthritis Other Musculoskeletal History: degenerative joint disease. Neurological History: Reports: Neuropathy, Peripheral Other Neuro History: multifactorial imbalance, possible cerebellar atrophy. Psychiatric History: Reports: Schizophrenia Other Psychiatric History: borderline personality disorder, periods of derrick Endocrine/Metabolic History: Reports: Diabetes, Type II, Hypothyroidism Other Endocrine/Metabolic History: Dysmetabolic syndrome X - Past Surgical History Musculoskeletal Surgical History: Reports: Knee Replacement, Shoulder Surgery Social & Family History - Caffeine Use Caffeine Use: Reports: None ED ROS GENERAL - Review of Systems Review Of Systems: See Below Constitutional: Reports: No Symptoms HEENT: Reports: Other (Chronically poor vision in the left eye, she is awaiting cataract surgery.) Respiratory: Reports: No Symptoms Cardiovascular: Reports: No Symptoms GI/Abdominal: Reports: No Symptoms Musculoskeletal: Denies: Neck Pain, Back Pain Neurological: Reports: No Symptoms, Other (Pain in the area of scalp hematoma but not generalized headache.) Psychiatric: Reports: Other ("Crotchety mood") ED EXAM, GENERAL - Physical Exam Exam: See Below Exam Limited By: No Limitations General Appearance: Alert, No Apparent Distress Eye Exam: Bilateral Eye: EOMI, Normal Fundi, Normal Inspection Nose: Normal Inspection Head: Other (There is a roughly 3 cm diameter hematoma near the occipital region of the skull. The remainder of her skull is entirely nontender.) Neck: Supple, Non-Tender Respiratory/Chest: Lungs Clear Cardiovascular: Regular Rate, Rhythm Course - Vital Signs Last Recorded V/S: Last Vital Signs Temp 36.2 C 10/22/19 18:54 Pulse 97 10/22/19 18:54 Resp 16 10/22/19 18:54 BP 154/96 H 10/22/19 18:54 Pulse Ox 97 10/22/19 18:54 - Orders/Labs/Meds Orders: Active Orders 24 hr Category Date Time Status Orthostatic Vital Signs [RC] ASDIRECTED Care 10/22/19 19:09 Ordered - Re-Assessments/Exams Free Text/Narrative Re-Assessment/Exam: 10/22/19 19:21 The patient is in no distress and based on physical exam at this time, I do not believe she needs CT scanning or laboratory investigations. I discussed obtaining orthostatic vital signs and when nursing staff presented to accomplish that, the patient insisted that she knows what they are but she does not think she needs him and won't do them! She will be returned to her assisted with no adjustments to medications or care plans. Nursing staff relayed recommendations to care staff at her facility. 10/22/19 19:23 Departure - Departure Time of Disposition: 19:24 Disposition: DC/Tfer to [facility] Condition: Good Clinical Impression: Chronic mental illness Scalp hematoma Qualifiers: Encounter type: initial encounter Qualified Code(s): S00.03XA - Contusion of scalp, initial encounter - Discharge Information Referrals: PCP,None [Primary Care Provider] - Additional Instructions: Cold packs to painful scalp lump 20 minutes off and on as needed, or tolerated. Tylenol 650 mg up to 5 times a day as needed for pain. Symptoms should gradually improve. According to staff at your living facility, you have an appointment later this month to be assessed for a different walker. Sepsis Event Note (ED) - Evaluation Sepsis Screening Result: No Definite Risk - Focused Exam Vital Signs: Vital Signs Temp Pulse Resp BP Pulse Ox 10/22/19 18:54 36.2 C 97 16 154/96 H 97 10/22/19 18:53 36.2 C 97 16 154/96 H 97 - My Orders Last 24 Hours: My Active Orders 10/22/19 19:09 Orthostatic Vital Signs [RC] ASDIRECTED - Assessment/Plan Last 24 Hours: My Active Orders 10/22/19 19:09 Orthostatic Vital Signs [RC] ASDIRECTED
== END 2019-10-22 19:55 ==
LOC: JP.ED 18:51
DX: S00.03XA Contusion of scalp, initial encounter (principal); F99 Mental disorder, not otherwise specified; I12.9 Hypertensive chronic kidney disease with stage 1 through stage 4 chronic kidney disease, or unspecified chronic kidney disease; E11.22 Type 2 diabetes mellitus with diabetic chronic kidney disease; N18.9 Chronic kidney disease, unspecified; J44.9 Chronic obstructive pulmonary disease, unspecified; M19.90 Unspecified osteoarthritis, unspecified site; E11.42 Type 2 diabetes mellitus with diabetic polyneuropathy; E03.9 Hypothyroidism, unspecified; Z88.1 Allergy status to other antibiotic agents; Z91.048 Other nonmedicinal substance allergy status; Z79.82 Long term (current) use of aspirin; Z79.899 Other long term (current) drug therapy; Z79.84 Long term (current) use of oral hypoglycemic drugs; W01.198A Fall on same level from slipping, tripping and stumbling with subsequent striking against other object, initial encounter
CPT/HCPCS: 99284

== ENCOUNTER 2020-02-11 13:56 | Emergency (ER) | payer MEDICARE, MEDICAID ==
[2020-02-11] MEDS ORDERED: Sodium Chloride 0.9% 1,000 ML IV SCH ×2 (14:15→15:15)
--- NOTE | 2020-02-11 14:21 | EDM.PDOC ---
ED HPI GENERAL MEDICAL PROBLEM - General Chief Complaint: General Stated Complaint: [facility] Time Seen by Provider: 02/11/20 13:57 Source of Information: Reports: Patient, EMS, Other (detention records) History Limitations: Reports: No Limitations - History of Present Illness INITIAL COMMENTS - FREE TEXT/NARRATIVE: 69-year-old female who lives in a long-term, chronic schizophrenia, presents with decreased mental status, low blood pressure and weakness. She was recently evaluated for increased slurred speech and has an MRI set up for the near future, but today after lunch they went and checked on her and found her to be dusky, less responsive, cool to the touch in the extremities and hypotensive. She has not done this before. She is still alert and answers questions appropriately but feels tired. Her only complaint is that she feels she has abdominal pain and needs to "have a bowel movement". She claims she has been falling a lot but no recent injuries. On arrival her systolic blood pressure is only 55. Onset: Unknown/Unsure Associated Symptoms: Reports: Malaise, Weakness, Other (Abdominal bloating) Abdomen Pain Score (Numeric/FACES): 7 - Related Data Allergies Allergy/AdvReac Type Severity Reaction Status Date / Time bacitracin Allergy Severe Rash Verified 02/11/20 14:30 [From Neosporin ([id number])] bacitracin zinc Allergy Severe Rash Verified 02/11/20 14:30 [From Neosporin ([id number])] neomycin sulfate Allergy Severe Rash Verified 02/11/20 14:30 [From Neosporin ([id number])] polymyxin B Allergy Severe Rash Verified 02/11/20 14:30 [From Neosporin ([id number])] nickel Allergy Cannot Verified 02/11/20 14:30 Remember metal gonzalo Allergy Other Uncoded 02/11/20 14:30 Home Meds: Home Meds Aspirin [[place] Aspirin] 325 mg PO DAILY 09/27/14 [History] Levothyroxine 125 mcg PO DAILY 09/27/14 [History] Lisinopril 5 mg PO DAILY 09/27/14 [History] Penicillin V Potassium 2,000 mg PO ASDIRECTED PRN 09/27/14 [History] Simvastatin [Zocor] 40 mg PO BEDTIME 09/27/14 [History] glipiZIDE [Glipizide ER] 10 mg PO DAILY 09/27/14 [History] medroxyPROGESTERone [Provera] 10 mg PO DAILY 09/27/14 [History] metFORMIN HCl [Metformin HCl] 1,000 mg PO BID 09/27/14 [History] Benztropine [Cogentin] 0.5 mg PO DAILY 01/03/17 [History] Oxybutynin 15 mg PO DAILY 01/03/17 [History] Metoprolol Succinate [Toprol XL] 25 mg PO DAILY 05/14/19 [History] amLODIPine [Norvasc] 2.5 mg PO DAILY 05/14/19 [History] Loratadine 10 mg PO DAILY 06/19/19 [History] ARIPiprazole [Abilify] 20 mg PO BID 10/22/19 [History] Amitriptyline [Elavil] 25 mg PO BEDTIME 10/22/19 [History] Multivitamin with Folic Acid [Tab-A-Liseth] 1 tab PO DAILY 10/22/19 [History] lamoTRIgine 400 mg PO DAILY 10/22/19 [History] Acetaminophen 500 mg PO BID 02/11/20 [History] Diclofenac Sodium [Pennsaid] 2 gm TP ASDIRECTED 02/11/20 [History] Fluticasone Propionate [Flonase] 2 sprays NS BID PRN 02/11/20 [History] Methyl Salicylate/Menth/Camph [Bengay Pain Relieving] 1 applic TOP QID PRN 02/11/20 [History] Simethicone [Gas-X] 125 mg PO ASDIRECTED 02/11/20 [History] Tolnaftate [Tinactin] 1 applic TP BID 02/11/20 [History] ziprasidone HCL [Geodon] 80 mg PO BID 02/11/20 [History] Past Medical History HEENT History: Reports: Other (See Below) Other HEENT History: balance problems Cardiovascular History: Reports: High Cholesterol, Hypertension, Other (See Below) Other Cardiovascular History: inoperable aortic aneurysm. Respiratory History: Reports: COPD Gastrointestinal History: Reports: Other (See Below) Other Gastrointestinal History: hernia Genitourinary History: Reports: Chronic Renal Insuffiency, Other (See Below) Other Genitourinary History: nephrocalcinosis Musculoskeletal History: Reports: Arthritis Other Musculoskeletal History: degenerative joint disease. Neurological History: Reports: Neuropathy, Peripheral Other Neuro History: multifactorial imbalance, possible cerebellar atrophy. Psychiatric History: Reports: Schizophrenia Other Psychiatric History: borderline personality disorder, periods of derrick Endocrine/Metabolic History: Reports: Diabetes, Type II, Hypothyroidism Other Endocrine/Metabolic History: Dysmetabolic syndrome X - Past Surgical History Musculoskeletal Surgical History: Reports: Knee Replacement, Shoulder Surgery Social & Family History - Tobacco Use Tobacco Use Status *Q: Light Tobacco User Years of Tobacco use: 10 Packs/Tins Daily: 0.5 - Caffeine Use Caffeine Use: Reports: Coffee - Recreational Drug Use Recreational Drug Use: No ED ROS GENERAL - Review of Systems Review Of Systems: See Below Constitutional: Reports: Malaise. Denies: Fever, Chills HEENT: Denies: Vision Change Respiratory: Denies: Shortness of Breath Cardiovascular: Denies: Chest Pain GI/Abdominal: Reports: Abdominal Pain, Constipation : Reports: Incontinence (Incontinence is chronic and unchanged) Skin: Reports: Pallor Neurological: Denies: Confusion Psychiatric: Reports: Other (Schizophrenia) ED EXAM, GENERAL - Physical Exam Exam: See Below Exam Limited By: No Limitations General Appearance: Alert, No Apparent Distress, Other (Appears tired but answ ering questions appropriately.) Eye Exam: Bilateral Eye: PERRL, Other (Opens eyes spontaneously at request) Head: Atraumatic Respiratory/Chest: No Respiratory Distress, Lungs Clear Cardiovascular: Regular Rate, Rhythm GI/Abdominal: Soft, Tender (Diffusely tender to palpation, no focal tenderness) Extremities: Other (Some mild erythema of the lower extremities, she has peripheral edema and cool feet and hands, pallor) Neurological: Alert, Oriented Psychiatric: Depressed Mood, Flat Affect Skin Exam: Cool, Pallor Course - Vital Signs Last Recorded V/S: Last Vital Signs Temp 95.8 F L 02/11/20 14:08 Pulse 85 02/11/20 15:49 Resp 20 02/11/20 15:49 BP 79/36 L 02/11/20 15:49 Pulse Ox 95 02/11/20 15:49 - Orders/Labs/Meds Orders: Active Orders 24 hr Category Date Time Status CULTURE BLOOD [BC] Urgent Lab 02/11/20 14:20 Received CULTURE BLOOD [BC] Urgent Lab 02/11/20 14:20 Received Blood Culture x2 Reflex Set [OM.PC] Urgent Oth 02/11/20 14:16 Ordered EKG 12 Lead [EK] Routine Ther 02/11/20 14:01 Ordered Labs: Laboratory Tests 02/11/20 02/11/20 02/11/20 Range/Units 14:01 14:01 14:24 WBC 20.2 H (4.5-11.0) K/uL RBC 5.32 (3.30-5.50) M/uL Hgb 16.0 H D (12.0-15.0) g/dL Hct 51.2 H (36.0-48.0) % MCV 96 (80-98) fL MCH 30 (27-31) pg MCHC 31 L (32-36) % Plt Count 190 (150-400) K/uL Neut % (Auto) 85 H (36-66) % Lymph % (Auto) 11 L (24-44) % Moore % (Auto) 3 (2-6) % Eos % (Auto) 1 L (2-4) % Baso % (Auto) 0 (0-1) % Sodium 137 L (140-148) mmol/L Potassium 4.9 (3.6-5.2) mmol/L Chloride 101 (100-108) mmol/L Carbon Dioxide 13 L (21-32) mmol/L Anion Gap 27.9 H (5.0-14.0) mmol/L BUN 27 H (7-18) mg/dL Creatinine 1.9 H D (0.6-1.0) mg/dL Est Cr Clr Drug Dosing 20.07 mL/min Estimated GFR (MDRD) 26 L (>60) Glucose 246 H (74-106) mg/dL Lactic Acid (0.4-2.0) mmol/L Calcium 10.2 H (8.5-10.1) mg/dL Total Bilirubin 0.8 D (0.2-1.0) mg/dL AST 39 H D (15-37) U/L ALT 31 (12-78) U/L Alkaline Phosphatase 138 H (46-116) U/L Troponin I < 0.017 (0.000-0.056) ng/mL C-Reactive Protein (0.0-0.3) mg/dL Total Protein 6.3 L (6.4-8.2) g/dL Albumin 2.9 L (3.4-5.0) g/dL Globulin 3.4 (2.3-3.5) g/dL Albumin/Globulin Ratio 0.9 L (1.2-2.2) Urine Color Yellow (YELLOW) Urine Appearance Slightly cloudy A (CLEAR) Urine pH 6.0 (5.0-8.0) Ur Specific Wells 1.020 (1.008-1.030) Urine Protein Trace H (NEGATIVE) mg/dL Urine Glucose (UA) Negative (NEGATIVE) mg/dL Urine Ketones Negative (NEGATIVE) mg/dL Urine Occult Blood Negative (NEGATIVE) Urine Nitrite Negative (NEGATIVE) Urine Bilirubin Negative (NEGATIVE) Urine Urobilinogen 0.2 (0.2-1.0) EU/dL Ur Leukocyte Esterase Negative (NEGATIVE) Urine RBC Not seen (0-5) Urine WBC Not seen (0-5) Ur Epithelial Cells Rare Amorphous Sediment Not seen Urine Bacteria Rare Urine Mucus Not seen SARS CoV-2 RNA Rapid MARGARET 02/11/20 02/11/20 02/11/20 Range/Units 14:24 14:24 15:28 WBC (4.5-11.0) K/uL RBC (3.30-5.50) M/uL Hgb (12.0-15.0) g/dL Hct (36.0-48.0) % MCV (80-98) fL MCH (27-31) pg MCHC (32-36) % Plt Count (150-400) K/uL Neut % (Auto) (36-66) % Lymph % (Auto) (24-44) % Moore % (Auto) (2-6) % Eos % (Auto) (2-4) % Baso % (Auto) (0-1) % Sodium (140-148) mmol/L Potassium (3.6-5.2) mmol/L Chloride (100-108) mmol/L Carbon Dioxide (21-32) mmol/L Anion Gap (5.0-14.0) mmol/L BUN (7-18) mg/dL Creatinine (0.6-1.0) mg/dL Est Cr Clr Drug Dosing mL/min Estimated GFR (MDRD) (>60) Glucose (74-106) mg/dL Lactic Acid 14.3 H (0.4-2.0) mmol/L Calcium (8.5-10.1) mg/dL Total Bilirubin (0.2-1.0) mg/dL AST (15-37) U/L ALT (12-78) U/L Alkaline Phosphatase (46-116) U/L Troponin I (0.000-0.056) ng/mL C-Reactive Protein 0.12 (0.0-0.3) mg/dL Total Protein (6.4-8.2) g/dL Albumin (3.4-5.0) g/dL Globulin (2.3-3.5) g/dL Albumin/Globulin Ratio (1.2-2.2) Urine Color (YELLOW) Urine Appearance (CLEAR) Urine pH (5.0-8.0) Ur Specific Wells (1.008-1.030) Urine Protein (NEGATIVE) mg/dL Urine Glucose (UA) (NEGATIVE) mg/dL Urine Ketones (NEGATIVE) mg/dL Urine Occult Blood (NEGATIVE) Urine Nitrite (NEGATIVE) Urine Bilirubin (NEGATIVE) Urine Urobilinogen (0.2-1.0) EU/dL Ur Leukocyte Esterase (NEGATIVE) Urine RBC (0-5) Urine WBC (0-5) Ur Epithelial Cells Amorphous Sediment Urine Bacteria Urine Mucus SARS CoV-2 RNA Rapid MARGARET Negative Meds: Medications Discontinued Medications Generic Name Dose Route Start Last Admin Trade Name Jeff PRN Reason Stop Dose Admin Sodium Chloride 1,000 mls @ 1,000 mls/hr 02/11/20 14:15 02/11/20 14:20 Normal Saline IV 1,000 mls/hr ASDIRECTED DUC Administration Norepinephrine Bitartrate 4 mg 250 mls @ 7.5 mls/hr 02/11/20 15:00 02/11/20 15:31 / Dextrose/Water IV 5 mcg/min TITRATE DUC 18.75 mls/hr Titration Protocol 2 MCG/MIN Meropenem 1 gm/ Sodium 100 mls @ 200 mls/hr 02/11/20 15:00 02/11/20 15:02 Chloride IV 02/11/20 15:29 200 mls/hr ONETIME ONE Administration Sodium Chloride 1,000 mls @ 1,000 mls/hr 02/11/20 15:15 02/11/20 15:07 Normal Saline IV 1,000 mls/hr ASDIRECTED DUC Administration - Re-Assessments/Exams Free Text/Narrative Re-Assessment/Exam: 02/11/20 14:27 Patient continued to be hypotensive, 1 L of normal saline was bolused. We attempted to get a hold of her long-term as she is DNR on paperwork but full code on her orders. CBC, CMP, blood cultures, lactic acid and CRP were obtained, Barger was placed and EKG done. EKG shows no ST depression or elevation. She also has a history of a "nonoperable" aortic artery and illiac artery aneurysm. CT of the head and abdomen without contrast were obtained. Decision will have to be made if she warrants pressors as a DNR. 02/11/20 14:[address] from [address] blood pressure solo to a 68/48. She has had 1 L of saline, and her mental status seemed to be back to baseline. Color looked better. Initial review of the CT scans shows no acute intracranial findings, abdomen shows possible stranding or diverticulitis. Formal reports are pending. Presumptive diagnosis of sepsis was made and after blood cultures obtained 1 g of meropenem IV ordered. Patient appeared to be making adequate urine. 02/11/20 15:33 Lactic acid return 14.3, CRP and troponin were normal. CT report indicates likely ischemic bowel. Discussed with the hospitalist service here in [place], are only care to offer here is comfort care and she would like to get more aggressive at this time. Discussed her case with Dr. Jr Lux and on-call surgery at [facility] in [place] and he kindly accepted her for transfer. Departure - Departure Time of Disposition: 15:49 Disposition: DC/Tfer to Other Clinical Impression: Ischemic bowel syndrome, Shock Hypotension Qualifiers: Hypotension type: other hypotension type Qualified Code(s): I95.89 - Other hypotension - Discharge Information Referrals: PCP,None [Primary Care Provider] - Forms: ED Department Discharge Care Plan Goals: Patient is to be urgently transferred to [place] for ischemic bowel, lactic acidosis and shock to hopefully get some type of interventional radiology procedure where she could resume blood flow to the bowel, or surgical treatment. Sepsis Event Note (ED) - Evaluation Sepsis Screening Result: Possible Severe Sepsis Risk - My Orders Last 24 Hours: My Active Orders 02/11/20 14:01 EKG 12 Lead [EK] Routine 02/11/20 14:16 Blood Culture x2 Reflex Set [OM.PC] Urgent 02/11/20 14:20 CULTURE BLOOD [BC] Urgent CULTURE BLOOD [BC] Urgent - Assessment/Plan Last 24 Hours: My Active Orders 02/11/20 14:01 EKG 12 Lead [EK] Routine 02/11/20 14:16 Blood Culture x2 Reflex Set [OM.PC] Urgent 02/11/20 14:20 CULTURE BLOOD [BC] Urgent CULTURE BLOOD [BC] Urgent
[2020-02-11] MEDS ORDERED: Meropenem 1 GM in Sodium Chloride 0.9% 100 ML IV ONE ×2 (14:37→15:00)
--- NOTE | 2020-02-11 14:50 | CRLCT ---
INDICATION: Mental status change. Hypotension. TECHNIQUE: CT head without IV contrast FINDINGS: No comparison. No intracranial hemorrhage, edema, or mass effect. Moderate diffuse cerebral and cerebellar atrophy. Mild dilatation of the lateral ventricles and mild to moderate dilatation of the 3rd ventricle likely chronic. Increased CSF spaces overlying the anterior temporal lobes left greater than right likely related to atrophy. Small infarcts in the lateral basal ganglia bilaterally. Remainder negative. IMPRESSION: 1. No acute intracranial disease. 2. Moderate chronic intracranial disease as described above. Please note that all CT scans at this facility use dose modulation, iterative reconstruction, and/or weight-based dosing when appropriate to reduce radiation dose to as low as reasonably achievable. Dictated by Dirk Khan MD @ Feb 11 2020 2:47PM Signed by Dr. Dirk Khan @ Feb 11 2020 2:48PM
--- NOTE | 2020-02-11 14:50 | CRLCT ---
INDICATION: Abdominal pain and hypotension. The foci doses COMPARISON: July 17, 2018 TECHNIQUE: CT examination of the abdomen and pelvis was performed without intravenous contrast. Thin section axial images were obtained from the lung bases through the pubic symphysis. Oral contrast was not administered. Please note that all CT scans at this facility use dose modulation, iterative reconstruction, and/or weight-based dosing when appropriate to reduce radiation dose to as low as reasonably achievable. FINDINGS: LUNG BASES: Heart size normal to lung bases. Atherosclerotic vascular calcifications. Small pericardial effusion similar in appearance to the prior study. LIVER/BILIARY SYSTEM:The liver is normal in size and configuration given the lack of intravenous contrast. There is no visible focal mass and there is no intra- or extra hepatic biliary ductal dilatation.The gallbladder surgically absent ADRENALS: Normal non-contrast appearance KIDNEYS, URETERS and BLADDER:The kidneys are atrophic. No hydronephrosis. A Barger catheter ends in the bladder. SPLEEN:Normal non-contrast appearance. PANCREAS: Normal non-contrast appearance. RETROPERITONEUM and MESENTERY: There is diffuse atherosclerosis of the aorta in a pattern consistent with a chronic dissection which is a known finding. This is diagnosed on 03/19/2018. There is no evidence that the aorta is leaking notice difficult to say one vessels are currently patent. There is aneurysmal dilatation of both iliacs with the right measuring 6.3 centimeters and the left 4.0 centimeters. This is about a centimeter larger on each side when compared to 2019. Again, there is no evidence that these are rupturing. GASTROINTESTINAL SYSTEM: There is a rectosigmoid fecal impaction with diffuse fecal retention throughout the colon. The small bowel is prominent with some wall thickening but no pneumatosis. This is specially true in the right flank and right lower quadrant. This raises the possibility of ischemic bowel. PELVIS: No mass, adenopathy or free fluid. OSSEOUS STRUCTURES and ABDOMINAL WALL: Demineralization and degenerative change without fracture or destructive process.Fat containing umbilical hernia OTHER: No free fluid or free air. IMPRESSION: 1. There are suggestive but not diagnostic findings of ischemic bowel especially the small-bowel in the right flank in the right lower quadrant. 2. 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 The iliac aneurysms are somewhat larger. There is no evidence that the aorta or the iliac Cerner leaking. I cannot assess for patency of major vessels on this noncontrast study. 3. Other incidental nonacute appearing findings as discussed above. 4. I discussed the above findings at 2:40 p.m. on February 11, [address] Melton Please note that all CT scans at this facility use dose modulation, iterative reconstruction, and/or weight-based dosing when appropriate to reduce radiation dose to as low as reasonably achievable. Dictated by Chano Mcrae MD @ Feb 11 2020 2:37PM Signed by Dr. Chano Mcrae @ Feb 11 2020 2:49PM
[2020-02-11] MEDS ORDERED: Norepinephrine 4 MG in Dextrose 5% in Water 246 ML IV SCH ×2 (15:00)
[2020-02-11 15:49] VITALS: BP 79/36; PULSE 85
== END 2020-02-11 15:52 | disposition other institution (70) ==
LOC: JP.ED 13:56
DX: I95.89 Other hypotension (principal); K55.9 Vascular disorder of intestine, unspecified; R60.0 Localized edema; R23.1 Pallor; I12.9 Hypertensive chronic kidney disease with stage 1 through stage 4 chronic kidney disease, or unspecified chronic kidney disease; E11.22 Type 2 diabetes mellitus with diabetic chronic kidney disease; N18.9 Chronic kidney disease, unspecified; E78.00 Pure hypercholesterolemia, unspecified; J44.9 Chronic obstructive pulmonary disease, unspecified; M19.90 Unspecified osteoarthritis, unspecified site; E11.42 Type 2 diabetes mellitus with diabetic polyneuropathy; E03.9 Hypothyroidism, unspecified; F17.210 Nicotine dependence, cigarettes, uncomplicated; Z88.1 Allergy status to other antibiotic agents; Z91.048 Other nonmedicinal substance allergy status; Z79.82 Long term (current) use of aspirin; Z79.899 Other long term (current) drug therapy; Z20.822 Contact with and (suspected) exposure to COVID-19
CPT/HCPCS: 36415; 51702; 70450; 74176; 80053; 81001; 83605; 84484; 85025; 86140; 87040; 93005; 93010; 96365; 96368; 99285; J2185; J7030; J7050; J7060; U0002

== ENCOUNTER 2020-02-22 08:48 | Observation (INO) | payer MEDICARE, MEDICAID ==
[2020-02-22] MEDS ORDERED: Sodium Chloride 0.9% 10 ML Syringe FLUSH PRN (08:55)
[2020-02-22] MEDS ORDERED: Lactated Ringers 1,000 ML IV SCH ×2 (09:00→10:13)
--- NOTE | 2020-02-22 09:33 | EDM.PDOC ---
ED HPI GENERAL MEDICAL PROBLEM - General Chief Complaint: General Stated Complaint: MEDICAL VIA [facility] Time Seen by Provider: 02/22/20 08:55 Source of Information: Reports: EMS, Family, Old Records, RN Notes Reviewed History Limitations: Reports: Altered Mental Status - History of Present Illness INITIAL COMMENTS - FREE TEXT/NARRATIVE: 69-year-old female presents emergency department with a complaint of unresponsiveness, EMS states last night she was fine prior to bed and then this morning she will wax and wane with her sensorium initial evaluation by EMS found to be hypotensive systolically 65 for blood pressure. Because she cannot provide history I was able to review the history from [facility] records she was recently transferred first part of the month for hypotension found to have a lactic acid around 14 concerned about ischemic bowel to [facility]. Evaluation there did not reveal any ischemic bowel however was found to have community-acquired pneumonia as well as non-small cell lung cancer she does have asked events of smoking history. She was intubated and extubated during her stay continue to have hypotensive episodes requiring Levophed drip. Discharge yesterday reviewed notes appear to have a normal sensorium however [facility] state that she was behaving normally but appeared to be somewhat sluggish or slow in response. - Related Data Allergies Allergy/AdvReac Type Severity Reaction Status Date / Time bacitracin Allergy Severe Rash Verified 02/22/20 08:51 [From Neosporin ([id number])] bacitracin zinc Allergy Severe Rash Verified 02/22/20 08:51 [From Neosporin ([id number])] neomycin sulfate Allergy Severe Rash Verified 02/22/20 08:51 [From Neosporin ([id number])] polymyxin B Allergy Severe Rash Verified 02/22/20 08:51 [From Neosporin ([id number])] nickel Allergy Cannot Verified 02/22/20 08:51 Remember metal gonzalo Allergy Other Uncoded 02/22/20 08:51 Home Meds: Home Meds Aspirin [Floyd Aspirin] 325 mg PO DAILY 09/27/14 [History] Levothyroxine 125 mcg PO DAILY 09/27/14 [History] Lisinopril 5 mg PO DAILY 09/27/14 [History] Penicillin V Potassium 2,000 mg PO ASDIRECTED PRN 09/27/14 [History] Simvastatin [Zocor] 40 mg PO BEDTIME 09/27/14 [History] glipiZIDE [Glipizide ER] 10 mg PO DAILY 09/27/14 [History] medroxyPROGESTERone [Provera] 10 mg PO DAILY 09/27/14 [History] metFORMIN HCl [Metformin HCl] 1,000 mg PO BID 09/27/14 [History] Benztropine [Cogentin] 0.5 mg PO DAILY 01/03/17 [History] Oxybutynin 15 mg PO DAILY 01/03/17 [History] Metoprolol Succinate [Toprol XL] 25 mg PO DAILY 05/14/19 [History] amLODIPine [Norvasc] 2.5 mg PO DAILY 05/14/19 [History] Loratadine 10 mg PO DAILY 06/19/19 [History] ARIPiprazole [Abilify] 20 mg PO BID 10/22/19 [History] Amitriptyline [Elavil] 25 mg PO BEDTIME 10/22/19 [History] Multivitamin with Folic Acid [Tab-A-Liseth] 1 tab PO DAILY 10/22/19 [History] lamoTRIgine 400 mg PO DAILY 10/22/19 [History] Acetaminophen 500 mg PO BID 02/11/20 [History] Diclofenac Sodium [Pennsaid] 2 gm TP ASDIRECTED 02/11/20 [History] Fluticasone Propionate [Flonase] 2 sprays NS BID PRN 02/11/20 [History] Methyl Salicylate/Menth/Camph [Bengay Pain Relieving] 1 applic TOP QID PRN 0 02/11/20 [History] Simethicone [Gas-X] 125 mg PO ASDIRECTED 02/11/20 [History] Tolnaftate [Tinactin] 1 applic TP BID 02/11/20 [History] ziprasidone HCL [Geodon] 80 mg PO BID 02/11/20 [History] Magnesium Oxide 400 mg PO BID 02/22/20 [History] Past Medical History HEENT History: Reports: Impaired Vision, Other (See Below) Other HEENT History: balance problems Cardiovascular History: Reports: Aneurysm, High Cholesterol, Hypertension, Other (See Below) Other Cardiovascular History: inoperable aortic iliac aneurysm. Respiratory History: Reports: COPD Gastrointestinal History: Reports: Other (See Below) Other Gastrointestinal History: hernia Genitourinary History: Reports: Chronic Renal Insuffiency, Other (See Below) Other Genitourinary History: nephrocalcinosis Musculoskeletal History: Reports: Arthritis Other Musculoskeletal History: degenerative joint disease. Neurological History: Reports: Neuropathy, Peripheral Other Neuro History: multifactorial imbalance, possible cerebellar atrophy. Psychiatric History: Reports: Depression, Schizophrenia Other Psychiatric History: borderline personality disorder, periods of derrick Endocrine/Metabolic History: Reports: Diabetes, Type II, Hypothyroidism, Obesity/BMI 30+ Other Endocrine/Metabolic History: Dysmetabolic syndrome X Oncologic (Cancer) History: Reports: Lung - Past Surgical History Head Surgeries/Procedures: Reports: None HEENT Surgical History: Reports: None Cardiovascular Surgical History: Reports: None Respiratory Surgical History: Reports: None Female Surgical History: Reports: None Endocrine Surgical History: Reports: None Neurological Surgical History: Reports: None Musculoskeletal Surgical History: Reports: Knee Replacement, Shoulder Surgery Oncologic Surgical History: Reports: None Dermatological Surgical History: Reports: None Social & Family History - Tobacco Use Tobacco Use Status *Q: Current Every Day Tobacco User Years of Tobacco use: 50 Packs/Tins Daily: 0.5 Used Tobacco, but Quit: No Second Hand Smoke Exposure: No - Caffeine Use Caffeine Use: Reports: Coffee - Recreational Drug Use Recreational Drug Use: No ED ROS GENERAL - Review of Systems Review Of Systems: Unable To Obtain Reason Not Obtained: Hypotensive unresponsive ED EXAM, GENERAL - Physical Exam Exam: See Below Free Text/Narrative:: E-FAST exam Subcostal and parasternal view: reveals no hematoma pericardium four-chamber heart with good activity Right sided abdominal view: reveals Fall's pouch no hemothorax Left-sided abdominal view: spleen and kidney no hemothorax noted Pelvic view: bladder identified no peritoneal blood noted Pleural view: reveal sliding sign bilaterally no pneumothorax noted Exam Limited By: Altered Mental Status General Appearance: Obtunded, Other (Will wax and wane in sensorium does communicate and then becomes more lethargic) Eye Exam: Bilateral Eye: Normal Inspection, PERRL Respiratory/Chest: No Respiratory Distress, Lungs Clear, Normal Breath Sounds, No Accessory Muscle Use, Chest Non-Tender Cardiovascular: Regular Rate, Rhythm, No Murmur GI/Abdominal: Soft, Tender (Around surgical scar from recent exploratory surgery) Course - Vital Signs Last Recorded V/S: Last Vital Signs Temp 99.4 F 01/12/21 09:01 Pulse 80 02/22/20 10:43 Resp 18 02/22/20 10:43 BP 93/43 L 02/22/20 10:43 Pulse Ox 90 L 02/22/20 10:43 - Orders/Labs/Meds Orders: Active Orders 24 hr Category Date Time Status Peripheral IV Care [RC] . DIRECTED Care 02/22/20 08:56 Active Lactated Ringers [Ringers, Lactated] 1,000 ml Med 02/22/20 10:13 Active IV ASDIRECTED Sodium Chloride 0.9% [Saline Flush] Med 02/22/20 08:55 Active 10 ml FLUSH ASDIRECTED PRN Peripheral IV Insertion Adult [OM.PC] Stat Oth 02/22/20 08:55 Ordered Medication Orders Lactated Ringer's (Ringers, Lactated) 1,000 mls @ 999 mls/hr IV ASDIRECTED DUC Last Admin: 02/22/20 10:15 Dose: 999 mls/hr Documented by: MIGEL Sodium Chloride (Saline Flush) 10 ml FLUSH ASDIRECTED PRN PRN Reason: Keep Vein Open Last Admin: 02/22/20 09:01 Dose: 10 ml Documented by: MIGEL Labs: Laboratory Tests 02/22/20 02/22/20 02/22/20 Range/Units 08:59 08:59 08:59 WBC 5.8 (4.5-11.0) K/uL RBC 3.33 (3.30-5.50) M/uL Hgb 9.9 L D (12.0-15.0) g/dL Hct 31.4 L (36.0-48.0) % MCV 94 (80-98) fL MCH 30 (27-31) pg MCHC 32 (32-36) % Plt Count 173 (150-400) K/uL Neut % (Auto) Caustic Mixer Lymph % (Auto) Caustic Mixer Maries % (Auto) Caustic Mixer Eos % (Auto) Caustic Mixer Baso % (Auto) Caustic Mixer Add Manual Diff Yes Neutrophils % (Manual) 80 H (36-66) % Band Neutrophils % 4 L (5-11) % Lymphocytes % (Manual) 11 L (24-44) % Monocytes % (Manual) 4 (2-6) % Eosinophils % (Manual) 1 L (2-4) % PT 10.5 (9.5-12.0) sec INR 0.96 (0.80-1.20) Sodium 136 L (140-148) mmol/L Potassium 3.8 (3.6-5.2) mmol/L Chloride 99 L (100-108) mmol/L Carbon Dioxide 28 D (21-32) mmol/L Anion Gap 12.8 (5.0-14.0) mmol/L BUN 15 (7-18) mg/dL Creatinine 1.6 H (0.6-1.0) mg/dL Est Cr Clr Drug Dosing TNP Estimated GFR (MDRD) 32 L (>60) Glucose 209 H (74-106) mg/dL Lactic Acid (0.4-2.0) mmol/L Calcium 9.7 (8.5-10.1) mg/dL Total Bilirubin 0.3 D (0.2-1.0) mg/dL AST 43 H (15-37) U/L ALT 46 (12-78) U/L Alkaline Phosphatase 105 (46-116) U/L Troponin I < 0.017 (0.000-0.056) ng/mL Total Protein 5.6 L (6.4-8.2) g/dL Albumin 2.2 L (3.4-5.0) g/dL Globulin 3.4 (2.3-3.5) g/dL Albumin/Globulin Ratio 0.7 L (1.2-2.2) 02/22/20 Range/Units 08:59 WBC (4.5-11.0) K/uL RBC (3.30-5.50) M/uL Hgb (12.0-15.0) g/dL Hct (36.0-48.0) % MCV (80-98) fL MCH (27-31) pg MCHC (32-36) % Plt Count (150-400) K/uL Neut % (Auto) Lymph % (Auto) Maries % (Auto) Eos % (Auto) Baso % (Auto) Add Manual Diff Neutrophils % (Manual) (36-66) % Band Neutrophils % (5-11) % Lymphocytes % (Manual) (24-44) % Monocytes % (Manual) (2-6) % Eosinophils % (Manual) (2-4) % PT (9.5-12.0) sec INR (0.80-1.20) Sodium (140-148) mmol/L Potassium (3.6-5.2) mmol/L Chloride (100-108) mmol/L Carbon Dioxide (21-32) mmol/L Anion Gap (5.0-14.0) mmol/L BUN (7-18) mg/dL Creatinine (0.6-1.0) mg/dL Est Cr Clr Drug Dosing Estimated GFR (MDRD) (>60) Glucose (74-106) mg/dL Lactic Acid 2.1 H (0.4-2.0) mmol/L Calcium (8.5-10.1) mg/dL Total Bilirubin (0.2-1.0) mg/dL AST (15-37) U/L ALT (12-78) U/L Alkaline Phosphatase (46-116) U/L Troponin I (0.000-0.056) ng/mL Total Protein (6.4-8.2) g/dL Albumin (3.4-5.0) g/dL Globulin (2.3-3.5) g/dL Albumin/Globulin Ratio (1.2-2.2) Meds: Medications Generic Name Dose Route Start Last Admin Trade Name Freq PRN Reason Stop Dose Admin Lactated Ringer's 1,000 mls @ 999 mls/hr 02/22/20 10:13 02/22/20 10:15 Ringers, Lactated IV 999 mls/hr ASDIRECTED DUC Administration Sodium Chloride 10 ml 02/22/20 08:55 02/22/20 09:01 Saline Flush FLUSH 10 ml ASDIRECTED PRN Administration Keep Vein Open Discontinued Medications Generic Name Dose Route Start Last Admin Trade Name Freq PRN Reason Stop Dose Admin Lactated Ringer's 1,000 mls @ 999 mls/hr 02/22/20 09:00 02/22/20 09:00 Ringers, Lactated IV 999 mls/hr ASDIRECTED DUC Administration Departure - Departure Time of Disposition: 10:47 Disposition: Admitted As Inpatient 66 Condition: Poor Clinical Impression: Hypotension Qualifiers: Hypotension type: other hypotension type Qualified Code(s): I95.89 - Other hypotension - Discharge Information Referrals: PCP,None [Primary Care Provider] - Forms: ED Department Discharge Critical Care Note - Critical Care Note Total Time (mins): 30 Sepsis Event Note (ED) - Evaluation Sepsis Screening Result: Possible Severe Sepsis Risk - Focused Exam Vital Signs: Vital Signs Temp Pulse Resp BP Pulse Ox 02/22/20 10:43 80 18 93/43 L 90 L 02/22/20 10:39 79 20 90/45 L 91 L 02/22/20 10:16 78 22 H 100/48 L 92 L 02/22/20 10:08 83 22 H 91/44 L 92 L 02/22/20 09:41 84 17 92/47 L 92 L 02/22/20 09:16 91 22 H 79/46 L 93 L 02/22/20 09:08 93 22 H 85/46 L 91 L 02/22/20 09:01 99.4 F 96 26 H 84/45 L 93 L 02/22/20 08:59 99.4 F 96 26 H 84/45 L 93 L 02/22/20 08:54 100 12 72/41 L 97 - My Orders Last 24 Hours: My Active Orders 02/22/20 08:55 Sodium Chloride 0.9% [Saline Flush] 10 ml FLUSH ASDIRECTED PRN Peripheral IV Insertion Adult [OM.PC] Stat 02/22/20 08:56 Peripheral IV Care [RC] . DIRECTED 02/22/20 10:13 Lactated Ringers [Ringers, Lactated] 1,000 ml IV ASDIRECTED - Assessment/Plan Last 24 Hours: My Active Orders 02/22/20 08:55 Sodium Chloride 0.9% [Saline Flush] 10 ml FLUSH ASDIRECTED PRN Peripheral IV Insertion Adult [OM.PC] Stat 02/22/20 08:56 Peripheral IV Care [RC] . DIRECTED 02/22/20 10:13 Lactated Ringers [Ringers, Lactated] 1,000 ml IV ASDIRECTED Plan: Assessment Acuity = acute Site and laterality = hypotension complicating the patient with known history of non-small cell lung cancer is well as an aortic aneurysm nonoperable Etiology = unclear etiology suspicious for polypharmacy Manifestations = none Location of injury = Home Lab values = hemoglobin low at 9.9 consistent normochromic anemia creatinine elevated 1.6 consistent chronic renal failure stage G3 B lactic acid slightly elevated 2.1 consistent with lactic acidosis troponin was negative albumin low at 2.[address] with hypoalbum[address] head CT scan shows no acute process Plan Call discussed case with hospitalist on-call at 1040 he kindly agreed to come and evaluate the patient emergency department for admission, she has been given about 1.5 L of fluid she did start to respond and will communicate by her blood pressure still labile This note was dictated using [email or web address] voice recognition software please call with any questions on syntax or grammar.
--- NOTE | 2020-02-22 10:06 | CT ---
Head wo Cont CLINICAL HISTORY: Slurred speech COMPARISON: 1 03/02/2020 TECHNIQUE: Transverse scans were obtained from the base of the skull through the vertex without IV contrast on a multislice, multidetector CT scanner. Auto dosage reduction and iterative reconstruction techniques employed. FINDINGS: No focal abnormal parenchymal density is identified. There is no mass effect, hemorrhage, or extraaxial collection. The basal cisterns and sulci over the convexities are moderately prominent. The ventricles are prominent. IMPRESSION: Advanced atrophic changes No acute intracranial process
--- NOTE | 2020-02-22 13:06 | PCM.HP.2 ---
H&P History of Present Illness - General Date of Service: 02/22/20 Admit Problem/Dx: Admission Diagnosis/Problem Admission Diagnosis/Problem Hypotension Source of Information: Patient, Provider History Limitations: Reports: No Limitations - History of Present Illness Initial Comments - Free Text/Narative: CC: unresponsive HPI: Wendy presented to the emergency room by ambulance this morning after she was noted to be hypotensive and unresponsive at her home. She was discharged from [facility] yesterday after a weeklong stay for presumed ischemic bowel with acute kidney injury and significant lactic acidosis. She seemed a little bit lethargic yesterday but with close to her normal. Wendy reports that she feels fine right now. She does not feel short of breath. She is not having chest pain. No complaints of headache, nausea or abdominal pain. She is hungry. She said that she felt well yesterday. She does not recall anything unusual from overnight. Work-up in the emergency room revealed hypotension which did respond to 2 L of IV fluid. There is no evidence to support infection at this time. She has a very mild elevation of her lactic acid which is probably related to poor perfusion. Mental status has improved dramatically after her blood pressure improved. She is going to be admitted for observation and medication adjustments. - Related Data Allergies/Adverse Reactions: Allergies Allergy/AdvReac Type Severity Reaction Status Date / Time bacitracin Allergy Severe Rash Verified 02/22/20 08:51 [From Neosporin ([id number])] bacitracin zinc Allergy Severe Rash Verified 02/22/20 08:51 [From Neosporin ([id number])] neomycin sulfate Allergy Severe Rash Verified 02/22/20 08:51 [From Neosporin ([id number])] polymyxin B Allergy Severe Rash Verified 02/22/20 08:51 [From Neosporin ([id number])] nickel Allergy Cannot Verified 02/22/20 08:51 Remember metal gonzalo Allergy Other Uncoded 02/22/20 08:51 Home Medications: Home Meds Aspirin [[place] Aspirin] 325 mg PO DAILY 09/27/14 [History] Levothyroxine 125 mcg PO DAILY 09/27/14 [History] Lisinopril 5 mg PO DAILY 09/27/14 [History] Penicillin V Potassium 2,000 mg PO ASDIRECTED PRN 09/27/14 [History] Simvastatin [Zocor] 40 mg PO BEDTIME 09/27/14 [History] glipiZIDE [Glipizide ER] 10 mg PO DAILY 09/27/14 [History] medroxyPROGESTERone [Provera] 10 mg PO DAILY 09/27/14 [History] metFORMIN HCl [Metformin HCl] 1,000 mg PO BID 09/27/14 [History] Benztropine [Cogentin] 0.5 mg PO DAILY 01/03/17 [History] Oxybutynin 15 mg PO DAILY 01/03/17 [History] Metoprolol Succinate [Toprol XL] 25 mg PO DAILY 05/14/19 [History] amLODIPine [Norvasc] 2.5 mg PO DAILY 05/14/19 [History] Loratadine 10 mg PO DAILY 06/19/19 [History] ARIPiprazole [Abilify] 20 mg PO BID 10/22/19 [History] Amitriptyline [Elavil] 25 mg PO BEDTIME 10/22/19 [History] Multivitamin with Folic Acid [Tab-A-Liseth] 1 tab PO DAILY 10/22/19 [History] lamoTRIgine 400 mg PO DAILY 10/22/19 [History] Acetaminophen 500 mg PO BID 02/11/20 [History] Diclofenac Sodium [Pennsaid] 2 gm TP ASDIRECTED 02/11/20 [History] Fluticasone Propionate [Flonase] 2 sprays NS BID PRN 02/11/20 [History] Methyl Salicylate/Menth/Camph [Bengay Pain Relieving] 1 applic TOP QID PRN 02/11/20 [History] Simethicone [Gas-X] 125 mg PO ASDIRECTED 02/11/20 [History] Tolnaftate [Tinactin] 1 applic TP BID 02/11/20 [History] ziprasidone HCL [Geodon] 80 mg PO BID 02/11/20 [History] Magnesium Oxide 400 mg PO BID 02/22/20 [History] Past Medical History HEENT History: Reports: Impaired Vision, Other (See Below) Other HEENT History: balance problems Cardiovascular History: Reports: Aneurysm, High Cholesterol, Hypertension, Other (See Below) Other Cardiovascular History: inoperable aortic iliac aneurysm. Respiratory History: Reports: COPD Gastrointestinal History: Reports: Other (See Below) Other Gastrointestinal History: hernia Genitourinary History: Reports: Chronic Renal Insuffiency, Other (See Below) Other Genitourinary History: nephrocalcinosis Musculoskeletal History: Reports: Arthritis Other Musculoskeletal History: degenerative joint disease. Neurological History: Reports: Neuropathy, Peripheral Other Neuro History: multifactorial imbalance, possible cerebellar atrophy. Psychiatric History: Reports: Depression, Schizophrenia Other Psychiatric History: borderline personality disorder, periods of derrick Endocrine/Metabolic History: Reports: Diabetes, Type II, Hypothyroidism, Obesity/BMI 30+ Other Endocrine/Metabolic History: Dysmetabolic syndrome X Oncologic (Cancer) History: Reports: Lung - Past Surgical History Head Surgeries/Procedures: Reports: None HEENT Surgical History: Reports: None Cardiovascular Surgical History: Reports: None Respiratory Surgical History: Reports: None Female Surgical History: Reports: None Endocrine Surgical History: Reports: None Neurological Surgical History: Reports: None Musculoskeletal Surgical History: Reports: Knee Replacement, Shoulder Surgery Oncologic Surgical History: Reports: None Dermatological Surgical History: Reports: None Social & Family History - Family History Cardiac: Denies: CAD - Tobacco Use Tobacco Use Status *Q: Current Every Day Tobacco User Years of Tobacco use: 50 Packs/Tins Daily: 0.5 Used Tobacco, but Quit: No Second Hand Smoke Exposure: No - Caffeine Use Caffeine Use: Reports: Coffee - Recreational Drug Use Recreational Drug Use: No H&P Review of Systems - Review of Systems: Review Of Systems: See Below Free Text/Narrative: A complete 12 point review of systems was obtained. Pertinent positives and negatives are noted in the history of present illness. All other systems were reviewed and were negative except as noted. Exam - Exam Exam: See Below - Vital Signs Vital Signs: Last Vital Signs Temp 37.4 C 02/22/20 09:01 Pulse 79 02/22/20 11:37 Resp 16 02/22/20 11:37 BP 116/62 02/22/20 11:37 Pulse Ox 96 02/22/20 11:37 Weight: 73.482 kg - Exam Quality Assessment: Supplemental Oxygen General: Alert, Oriented, Cooperative. No: Mild Distress HEENT: Conjunctiva Clear, Pupils Equal, Other (no teeth ). No: Mucosa Moist & [place] (dry) Neck: Supple, Trachea Midline Lungs: Clear to Auscultation, Normal Respiratory Effort Cardiovascular: Regular Rate, Regular Rhythm. No: Systolic Murmur GI/Abdominal Exam: Normal Bowel Sounds, Soft, No Distention, Other (Midline surgical scar with gonzalo from inferior border of sternum to the suprapubic area. No erythema or drainage and appears to be healing well.) Extremities: No Pedal Edema. No: Increased Warmth Peripheral Pulses: 2+: Dorsalis Pedis (L), Dorsalis Pedis (R) Skin: Warm, Dry Neuro Extensive - Mental Status: Alert, Oriented x3, Nl Response to Commands Neuro Extensive - Motor, Sensory, Reflexes: Dysarthria (Due to no teeth). No: Abnormal Motor, Tremor Psychiatric: Alert, Normal Affect - Patient Data Lab Results Last 24 hrs: Laboratory Results - last 24 hr 02/22/20 02/22/20 02/22/20 Range/Units 08:59 08:59 08:59 WBC 5.8 (4.5-11.0) K/uL RBC 3.33 (3.30-5.50) M/uL Hgb 9.9 L D (12.0-15.0) g/dL Hct 31.4 L (36.0-48.0) % MCV 94 (80-98) fL MCH 30 (27-31) pg MCHC 32 (32-36) % Plt Count 173 (150-400) K/uL Neut % (Auto) Clothes Drier Assembler Lymph % (Auto) Clothes Drier Assembler Fleming % (Auto) Clothes Drier Assembler Eos % (Auto) Clothes Drier Assembler Baso % (Auto) Clothes Drier Assembler Add Manual Diff Yes Neutrophils % (Manual) 80 H (36-66) % Band Neutrophils % 4 L (5-11) % Lymphocytes % (Manual) 11 L (24-44) % Monocytes % (Manual) 4 (2-6) % Eosinophils % (Manual) 1 L (2-4) % PT 10.5 (9.5-12.0) sec INR 0.96 (0.80-1.20) Sodium 136 L (140-148) mmol/L Potassium 3.8 (3.6-5.2) mmol/L Chloride 99 L (100-108) mmol/L Carbon Dioxide 28 D (21-32) mmol/L Anion Gap 12.8 (5.0-14.0) mmol/L BUN 15 (7-18) mg/dL Creatinine 1.6 H (0.6-1.0) mg/dL Est Cr Clr Drug Dosing TNP Estimated GFR (MDRD) 32 L (>60) Glucose 209 H (74-106) mg/dL Lactic Acid (0.4-2.0) mmol/L Calcium 9.7 (8.5-10.1) mg/dL Total Bilirubin 0.3 D (0.2-1.0) mg/dL AST 43 H (15-37) U/L ALT 46 (12-78) U/L Alkaline Phosphatase 105 (46-116) U/L Troponin I < 0.017 (0.000-0.056) ng/mL Total Protein 5.6 L (6.4-8.2) g/dL Albumin 2.2 L (3.4-5.0) g/dL Globulin 3.4 (2.3-3.5) g/dL Albumin/Globulin Ratio 0.7 L (1.2-2.2) 02/22/20 Range/Units 08:59 WBC (4.5-11.0) K/uL RBC (3.30-5.50) M/uL Hgb (12.0-15.0) g/dL Hct (36.0-48.0) % MCV (80-98) fL MCH (27-31) pg MCHC (32-36) % Plt Count (150-400) K/uL Neut % (Auto) Lymph % (Auto) Fleming % (Auto) Eos % (Auto) Baso % (Auto) Add Manual Diff Neutrophils % (Manual) (36-66) % Band Neutrophils % (5-11) % Lymphocytes % (Manual) (24-44) % Monocytes % (Manual) (2-6) % Eosinophils % (Manual) (2-4) % PT (9.5-12.0) sec INR (0.80-1.20) Sodium (140-148) mmol/L Potassium (3.6-5.2) mmol/L Chloride (100-108) mmol/L Carbon Dioxide (21-32) mmol/L Anion Gap (5.0-14.0) mmol/L BUN (7-18) mg/dL Creatinine (0.6-1.0) mg/dL Est Cr Clr Drug Dosing Estimated GFR (MDRD) (>60) Glucose (74-106) mg/dL Lactic Acid 2.1 H (0.4-2.0) mmol/L Calcium (8.5-10.1) mg/dL Total Bilirubin (0.2-1.0) mg/dL AST (15-37) U/L ALT (12-78) U/L Alkaline Phosphatase (46-116) U/L Troponin I (0.000-0.056) ng/mL Total Protein (6.4-8.2) g/dL Albumin (3.4-5.0) g/dL Globulin (2.3-3.5) g/dL Albumin/Globulin Ratio (1.2-2.2) Result Diagrams: 02/22/20 08:59 02/22/20 08:59 Imaging Impressions Last 24 hrs: Head CT-images personally reviewed-moderate atrophy but no acute findings such as mass, hemorrhage or infarct. Sepsis Event Note - Evaluation Sepsis Screening Result: Possible Severe Sepsis Risk - Focused Exam Vital Signs: Vital Signs Temp Pulse Resp BP Pulse Ox 02/22/20 11:37 79 16 116/62 96 02/22/20 10:52 83 18 87/54 L 89 L 02/22/20 10:43 80 18 93/43 L 90 L 02/22/20 10:39 79 20 90/45 L 91 L 02/22/20 10:16 78 22 H 100/48 L 92 L 02/22/20 10:08 83 22 H 91/44 L 92 L 02/22/20 09:41 84 17 92/47 L 92 L 02/22/20 09:16 91 22 H 79/46 L 93 L 02/22/20 09:08 93 22 H 85/46 L 91 L 02/22/20 09:01 37.4 C 96 26 H 84/45 L 93 L 02/22/20 08:59 37.4 C 96 26 H 84/45 L 93 L 02/22/20 08:54 100 12 72/41 L 97 *Q Meaningful Use (ADM) - VTE Risk Assess *Q Each Risk Factor Represents 1 Point: Obesity ( BMI > 25 kg/m2) Total Score 1 Point Risk Factors: 1 Each Risk Factor Represents 2 Points: Age 60 - 74 Years, Malignancy (present or previous) Total Score 2 Point Risk Factors: 4 Each Risk Factor Represents 3 Points: None Total Score 3 Point Risk Factors: 0 Each Risk Factor Represents 5 Points: None Total Score 5 Point Risk Factors: 0 Venous Thromboembolism Risk Factor Score *Q: 5 - Problem List (1) Hypotension SNOMED Code(s): 28376093 ICD Code: I95.9 - HYPOTENSION, UNSPECIFIED Status: Acute Current Visit: Yes Qualifiers: Hypotension type: hypotension due to drug Qualified Code(s): I95.2 - Hypotension due to drugs (2) Decreased level of consciousness SNOMED Code(s): 966940001 ICD Code: R41.89 - OTH SYMPTOMS AND SIGNS W COGNITIVE FUNCTIONS AND AWARENESS Status: Acute Current Visit: Yes (3) CKD (chronic kidney disease), stage III SNOMED Code(s): 877950077 ICD Code: N18.30 - CHRONIC KIDNEY DISEASE, STAGE 3 UNSPECIFIED Status: Chronic Current Visit: Yes Qualifiers: Chronic kidney disease stage 3 subtype: stage 3b (GFR 30-44) Qualified Code(s): N18.32 - Chronic kidney disease, stage 3b (4) Schizophrenia SNOMED Code(s): 16704217 ICD Code: F20.9 - SCHIZOPHRENIA, UNSPECIFIED Status: Chronic Current Visit: No Qualifiers: Schizophrenia type: schizophreniform disorder Qualified Code(s): F20.81 - Schizophreniform disorder (5) Type 2 diabetes mellitus SNOMED Code(s): 04882039 ICD Code: E11.9 - TYPE 2 DIABETES MELLITUS WITHOUT COMPLICATIONS Status: Chronic Current Visit: No Qualifiers: Diabetes mellitus longterm insulin use: without long term care social worker use Diabetes mellitus complication status: with other specified complication Qualified Code(s): E11.69 - Type 2 diabetes mellitus with other specified complication Problem List Initiated/Reviewed/Updated: Yes Orders Last 24hrs: Active Orders 24 hr Category Date Time Status Patient Status Manage Transfer [TRANSFER] Routine ADT 02/22/20 12:56 Ordered Peripheral IV Care [RC] . DIRECTED Care 02/22/20 08:56 Active Lactated Ringers [Ringers, Lactated] 1,000 ml Med 02/22/20 10:13 Active IV ASDIRECTED Sodium Chloride 0.9% [Saline Flush] Med 02/22/20 08:55 Active 10 ml FLUSH ASDIRECTED PRN Peripheral IV Insertion Adult [OM.PC] Stat Oth 02/22/20 08:55 Ordered Resuscitation Status Routine Resus Stat 02/22/20 12:58 Ordered Medication Orders Lactated Ringer's (Ringers, Lactated) 1,000 mls @ 999 mls/hr IV ASDIRECTED DUC Last Admin: 02/22/20 10:15 Dose: 999 mls/hr Documented by: MIGEL Sodium Chloride (Saline Flush) 10 ml FLUSH ASDIRECTED PRN PRN Reason: Keep Vein Open Last Admin: 02/22/20 09:01 Dose: 10 ml Documented by: MIGEL Assessment/Plan Comment:: ASSESSMENT AND PLAN - Hypotension-I suspect this was the cause for her decreased level of consciousness this morning. I suspect that her hypotension is related to antihypertensive medication use. No strong evidence to support infection at this time. Blood pressure responded nicely to some IV fluids. Mental status improving as blood pressure has improved. She does have a large aortic dissection but she is not currently having any abdominal pain and there are no other reasons to believe that this is bleeding or has changed from baseline. -Hold metoprolol, lisinopril and amlodipine -Hold amitriptyline Stage III chronic kidney disease-creatinine is elevated from baseline but is better than it was 10 days ago. She has received 2 L of fluids. -Hold antihypertensives as above -Repeat labs in the morning Type 2 diabetes mellitus-on to oral meds. Creatinine is greater than 1.5. -Hold Metformin -Continue glipizide Schizophrenia-no behavior issues at this time. -Renal dosing of lamotrigine -Hold amitriptyline Maintenance issues - - DVT prophylaxis -mechanical - GI prophylaxis -not indicated - Nutrition -consistent carbohydrates - Barger catheter -not indicated CODE STATUS -full code Admission justification -this patient will be admitted for inpatient services and is medically appropriate meeting medical necessity for inpatient admission as outlined in my documentation. I reasonably expect the patient will require inpatient services that span a period time over 2 midnights. I reasonably expect this patient to be discharged or transferred within 96 hours [facility]. Disposition -anticipate discharge back to her care home after the hospital stay Primary care physician - Kelly Rodgers M.D. - Mortality Measure Prognosis:: Good
[2020-02-22] MEDS ORDERED: LORazepam 2 MG/ML SDV IVPUSH PRN (16:35)
[2020-02-22] MEDS ORDERED: FLUTICASONE PROPIONATE NS PRN (16:35)
[2020-02-22] MEDS ORDERED: Acetaminophen 325 MG Tab PO PRN (16:35)
[2020-02-22] MEDS ORDERED: Ondansetron 4 MG/2 ML SDV IV PRN (16:35)
[2020-02-22] MEDS ORDERED: Ondansetron 4 MG Tab.DIS PO PRN (16:35)
[2020-02-22] MEDS ORDERED: Magnesium Hydroxide 400 MG/5 ML Susp 30 ML Cup PO PRN (16:35)
[2020-02-22] MEDS ORDERED: Fluticasone Propionate Nasal Spray 16 GM Bottle NAS PRN (17:01)
[2020-02-22] MEDS: Ziprasidone HCl 20 MG Cap PO SCH (20:30)
[2020-02-22] MEDS: Melatonin 3 MG Tab PO SCH (20:30)
[2020-02-22] MEDS: ARIPiprazole 10 MG Tab PO SCH (20:30)
[2020-02-22] MEDS: MAGNESIUM OXIDE 400 MG PO SCH (20:31)
[2020-02-22] MEDS ORDERED: Non-Formulary Medication 1 Each (Simvastatin [Zocor] 40 MG) PO SCH (21:00)
[2020-02-22] MEDS ORDERED: Non-Formulary Medication 1 Each (Magnesium Oxide [Magnesium Oxide] 400 MG) PO SCH (21:00)
[2020-02-22] MEDS ORDERED: Non-Formulary Medication 1 Each (Aripiprazole [Abilify] 20 MG) PO SCH (21:00)
[2020-02-22] MEDS ORDERED: Simvastatin 20 MG Tab PO SCH (21:00)
[2020-02-22] MEDS ORDERED: ZIPRASIDONE HCL 80 MG PO SCH (21:00)
[2020-02-23] MEDS ORDERED: glipiZIDE 5 MG Tab.ER PO SCH ×2 (07:30→09:00)
[2020-02-23] MEDS ORDERED: Levothyroxine 100 MCG, Levothyroxine 25 MCG PO SCH ×2 (07:30)
[2020-02-23] MEDS ORDERED: lamoTRIgine 100 MG Tab PO SCH (09:00)
[2020-02-23] MEDS ORDERED: ASPIRIN 325 MG PO SCH (09:00)
[2020-02-23] MEDS ORDERED: Non-Formulary Medication 1 Each (Levothyroxine [Levothyroxine] 125 MCG) PO SCH (09:00)
[2020-02-23] MEDS ORDERED: Non-Formulary Medication 1 Each (Loratadine [Loratadine] 10 MG) PO SCH (09:00)
[2020-02-23] MEDS ORDERED: OXYBUTYNIN 15 MG PO SCH (09:00)
[2020-02-23] MEDS ORDERED: MEDROXYPROGESTERONE 10 MG PO SCH (09:00)
[2020-02-23] MEDS ORDERED: glipiZIDE 5 MG Tab PO SCH (09:00)
[2020-02-23] MEDS ORDERED: Non-Formulary Medication 1 Each (Glipizide [Glipizide Er] 10 MG) PO SCH (09:00)
[2020-02-23] MEDS ORDERED: LAMOTRIGINE 300 MG PO SCH (09:00)
[2020-02-23] MEDS ORDERED: Oxybutynin 5 MG Tab PO SCH (09:00)
[2020-02-23] MEDS: MEDROXYPROGESTERONE 10 MG PO SCH (09:11)
[2020-02-23] MEDS: Benztropine 1 MG Tab PO SCH (09:14)
[2020-02-23] MEDS: ARIPiprazole 10 MG Tab PO SCH (09:15)
[2020-02-23] MEDS: LORATADINE 10 MG PO SCH (09:16)
[2020-02-23] MEDS: MAGNESIUM OXIDE 400 MG PO SCH ×2 (09:16→20:28)
[2020-02-23] MEDS: ASPIRIN 325 MG PO SCH (09:17)
[2020-02-23] MEDS: Ziprasidone HCl 20 MG Cap PO SCH (09:17)
--- NOTE | 2020-02-23 10:37 | CR ---
CHEST: Portable 02/23/2020 at 10:00 AM CLINICAL HISTORY:Hypoxia COMPARISON:None FINDINGS: There is less than optimal inspiration. Heart size and pulmonary vascular are normal. There are atherosclerotic changes in the aorta. There is ectasia or aneurysm of the aortic arch. No infiltrates are seen. There are no pleural effusions.. IMPRESSION: Limited study due to poor inspiratory level No infiltrate seen Moderate atheromatous changes in the aorta with aortic ectasia versus aortic arch aneurysm
--- NOTE | 2020-02-23 11:02 | PCM.PN ---
- General Info Date of Service: 02/23/20 Subjective Update: No acute events overnight. Blood pressure has been stable since admission. She did have a low-grade fever off-and-on overnight. She reports that she feels much better today. She does not feel short of breath but she has been on 2 L of oxygen. No abdominal pain or nausea. Mental status has improved dramatically since admission. Chest x-ray this morning did not show any obvious infiltrates. Functional Status: Reports: Pain Controlled, Tolerating Diet - Review of Systems General: Reports: Weakness - Patient Data Vitals - Most Recent: Last Vital Signs Temp 37.8 C 02/23/20 10:27 Pulse 109 H 02/23/20 10:27 Resp 18 02/23/20 10:27 BP 105/51 L 02/23/20 10:27 Pulse Ox 93 L 02/23/20 10:27 Weight - Most Recent: 73.482 kg I&O - Last 24 Hours: Intake & Output 02/22/20 02/23/20 02/23/20 22:59 06:59 14:59 Intake Total 350 408 5302 Balance [phone] Lab Results Last 24 Hours: Laboratory Results - last 24 hr 02/23/20 Range/Units 05:35 Sodium 138 L (140-148) mmol/L Potassium 4.2 (3.6-5.2) mmol/L Chloride 102 (100-108) mmol/L Carbon Dioxide 27 (21-32) mmol/L Anion Gap 13.2 (5.0-14.0) mmol/L BUN 16 (7-18) mg/dL Creatinine 1.1 H (0.6-1.0) mg/dL Est Cr Clr Drug Dosing 34.67 mL/min Estimated GFR (MDRD) 49 L (>60) Glucose 162 H (74-106) mg/dL Calcium 9.0 (8.5-10.1) mg/dL Med Orders - Current: Current Medications Acetaminophen (Tylenol) 650 mg PO Q4H PRN PRN Reason: Pain (Mild 1-3)/fever Aripiprazole (Abilify) 20 mg PO BID [facility] Last Admin: 02/23/20 09:15 Dose: 20 mg Documented by: Aspirin (Ecotrin) 325 mg PO DAILY [facility] Last Admin: 02/23/20 09:17 Dose: 325 mg Documented by: Benztropine Mesylate (Cogentin) 0.5 mg PO DAILY [facility] Last Admin: 02/23/20 09:14 Dose: 0.5 mg Documented by: Fluticasone Propionate (Flonase) 0 gm MORRIS BID PRN PRN Reason: ALLERGY Glipizide (Glucotrol Xl) 10 mg PO ACBREAKFAST [facility] Last Admin: 02/23/20 09:16 Dose: 10 mg Documented by: Levothyroxine Sodium 100 mcg/ (Levothyroxine Sodium 25 mcg) 125 mcg PO ACBREAKFAST [facility] Last Admin: 02/23/20 09:14 Dose: 125 mcg Documented by: Loratadine (Claritin) 10 mg PO DAILY [facility] Last Admin: 02/23/20 09:16 Dose: 10 mg Documented by: Lorazepam (Ativan) 0.5 mg IVPUSH Q4H PRN PRN Reason: Nausea/Vomiting Magnesium Hydroxide (Milk Of Magnesia) 30 ml PO Q12H PRN PRN Reason: Constipation Magnesium Oxide (Magnesium Oxide) 400 mg PO BID [facility] Last Admin: 02/23/20 09:16 Dose: 400 mg Documented by: Medroxyprogesterone Acetate (Provera) 10 mg PO DAILY [facility] Stop: 02/24/20 09:01 Last Admin: 02/23/20 09:11 Dose: 10 mg Documented by: Medroxyprogesterone Acetate (Provera) 10 mg PO DAILY [facility] Stop: 03/26/20 09:01 Melatonin (Melatonin) 9 mg PO BEDTIME [facility] Last Admin: 02/22/20 20:30 Dose: 9 mg Documented by: [facility] Ondansetron HCl (Zofran) 4 mg IV Q6H PRN PRN Reason: Nausea/Vomiting Ondansetron HCl (Zofran Odt) 4 mg PO Q6H PRN PRN Reason: Nausea able to take PO Oxybutynin Chloride (Oxybutynin) 7.5 mg PO BID [facility] Last Admin: 02/23/20 09:16 Dose: 7.5 mg Documented by: Senna/Docusate Sodium (Senna Plus) 1 tab PO BID PRN PRN Reason: Constipation Simvastatin (Zocor) 40 mg PO BEDTIME [facility] Last Admin: 02/22/20 20:30 Dose: 40 mg Documented by: Sodium Chloride (Saline Flush) 10 ml FLUSH ASDIRECTED PRN PRN Reason: Keep Vein Open Last Admin: 02/22/20 09:01 Dose: 10 ml Documented by: Ziprasidone (Geodon) 80 mg PO BID [facility] Last Admin: 02/23/20 09:17 Dose: 80 mg Documented by: Discontinued Medications Lactated Ringer's (Ringers, Lactated) 1,000 mls @ 999 mls/hr IV ASDIRECTED [facility] Last Admin: 02/22/20 09:00 Dose: 999 mls/hr Documented by: Lactated Ringer's (Ringers, Lactated) 1,000 mls @ 999 mls/hr IV ASDIRECTED [facility] Last Admin: 02/22/20 10:15 Dose: 999 mls/hr Documented by: Lamotrigine (Lamotrigine) 300 mg PO DAILY [facility] Last Admin: 02/23/20 09:14 Dose: 300 mg Documented by: - Exam Quality Assessment: Supplemental Oxygen General: Alert, Oriented, Cooperative, No Acute Distress Lungs: Normal Respiratory Effort, Crackles (rare right lung base) Cardiovascular: Regular Rate, Regular Rhythm GI/Abdominal Exam: Soft, No Distention Extremities: No Pedal Edema. No: Increased Warmth Skin: Warm, Dry Psy/Mental Status: Alert, Normal Affect Sepsis Event Note - Evaluation Sepsis Screening Result: No Definite Risk - Focused Exam Vital Signs: Vital Signs Temp Pulse Resp BP Pulse Ox 02/23/20 10:27 37.8 C 109 H 18 105/51 L 93 L 02/23/20 07:00 37.6 C 103 H 18 121/59 L 96 02/23/20 03:00 37.7 C 110 H 18 121/63 94 L 02/22/20 23:04 38.1 C 112 H 16 120/60 93 L - Problem List & Annotations (1) Hypotension SNOMED Code(s): 38096028 Code(s): I95.9 - HYPOTENSION, UNSPECIFIED Status: Acute Current Visit: Yes Qualifiers: Hypotension type: hypotension due to drug Qualified Code(s): I95.2 - Hypotension due to drugs (2) Decreased level of consciousness SNOMED Code(s): 313619566 Code(s): R41.89 - OTH SYMPTOMS AND SIGNS W COGNITIVE FUNCTIONS AND AWARENESS Status: Acute Current Visit: Yes (3) CKD (chronic kidney disease), stage III SNOMED Code(s): 555697200 Code(s): N18.30 - CHRONIC KIDNEY DISEASE, STAGE 3 UNSPECIFIED Status: Chronic Current Visit: Yes Qualifiers: Chronic kidney disease stage 3 subtype: stage 3b (GFR 30-44) Qualified Code(s): N18.32 - Chronic kidney disease, stage 3b (4) Schizophrenia SNOMED Code(s): 20795907 Code(s): F20.9 - SCHIZOPHRENIA, UNSPECIFIED Status: Chronic Current Visit: No Qualifiers: Schizophrenia type: schizophreniform disorder Qualified Code(s): F20.81 - Schizophreniform disorder (5) Type 2 diabetes mellitus SNOMED Code(s): 90346812 Code(s): E11.9 - TYPE 2 DIABETES MELLITUS WITHOUT COMPLICATIONS Status: Chronic Current Visit: No Qualifiers: Diabetes mellitus half-way insulin use: without terminal manager use Diabetes mellitus complication status: with other specified complication Qualified Code(s): E11.69 - Type 2 diabetes mellitus with other specified complication - Problem List Review Problem List Initiated/Reviewed/Updated: Yes - My Orders Last 24 Hours: My Active Orders 02/22/20 Lunch Consistent Carbohydrate Diet [DIET] 02/22/20 12:58 Resuscitation Status Routine 02/22/20 16:35 Acetaminophen [TylenoL] 650 mg PO Q4H PRN Docusate Sodium/Sennosides [Senna Plus] 1 tab PO BID PRN LORazepam [Ativan] 0.5 mg IVPUSH Q4H PRN Magnesium Hydroxide [Milk of Magnesia] 30 ml PO Q12H PRN Ondansetron [Zofran ODT] 4 mg PO Q6H PRN Ondansetron [Zofran] 4 mg IV Q6H PRN 02/22/20 16:35 Patient Status [ADT] Routine Antiembolic Devices [RC] .Routine Intake and Output [RC] QSHIFT Notify Provider Vital Signs [RC] ASDIRECTED Oxygen Therapy [RC] PRN Up With Assistance [RC] ASDIRECTED VTE/DVT Education [RC] Per Unit Routine Vital Signs [RC] Q4H Sequential Compression Device [OM.PC] Routine 02/22/20 17:01 Fluticasone Propionate [Flonase] 0 gm MORRIS BID PRN 02/22/20 21:00 ARIPiprazole [Abilify] 20 mg PO BID Magnesium Oxide 400 mg PO BID Melatonin 9 mg PO BEDTIME Simvastatin [Zocor] 40 mg PO BEDTIME ziprasidone HCL [Geodon] 80 mg PO BID 02/23/20 07:30 Levothyroxine [Synthroid] 125 mcg PO ACBREAKFAST glipiZIDE [Glucotrol XL] 10 mg PO ACBREAKFAST 02/23/20 09:00 Aspirin [Ecotrin] 325 mg PO DAILY Benztropine [Cogentin] 0.5 mg PO DAILY Loratadine [Claritin] 10 mg PO DAILY Oxybutynin 7.5 mg PO BID lamoTRIgine 300 mg PO DAILY medroxyPROGESTERone [Provera] 10 mg PO DAILY 02/23/20 09:16 COVID-19/FLU A+B/RSV [MOLEC] Routine UA W/MICROSCOPIC [URIN] Routine 02/23/20 11:15 lamoTRIgine 400 mg PO DAILY 02/23/20 16:30 metFORMIN HCl [Metformin HCl] 1,000 mg PO BIDAC 02/23/20 17:00 GLUCOSE POC LAB TO COLLECT JPM [POC] BIDAC 02/24/20 05:00 CBC W/O DIFF,HEMOGRAM [HEME] Timed (1) COMPREHENSIVE METABOLIC PN,CMP [CHEM] Timed 02/24/20 08:00 GLUCOSE POC LAB TO COLLECT JPM [POC] BIDAC 02/24/20 17:00 GLUCOSE POC LAB TO COLLECT JPM [POC] BIDAC 02/25/20 08:00 GLUCOSE POC LAB TO COLLECT JPM [POC] BIDAC 02/25/20 17:00 GLUCOSE POC LAB TO COLLECT JPM [POC] BIDAC 02/26/20 08:00 GLUCOSE POC LAB TO COLLECT JPM [POC] BIDAC 02/26/20 17:00 GLUCOSE POC LAB TO COLLECT JPM [POC] BIDAC 02/27/20 08:00 GLUCOSE POC LAB TO COLLECT JPM [POC] BIDAC 02/27/20 17:00 GLUCOSE POC LAB TO COLLECT JPM [POC] BIDAC 02/28/20 08:00 GLUCOSE POC LAB TO COLLECT JPM [POC] BIDAC 02/28/20 17:00 GLUCOSE POC LAB TO COLLECT JPM [POC] BIDAC 03/13/20 09:00 medroxyPROGESTERone [Provera] 10 mg PO DAILY - Plan Plan:: ASSESSMENT AND PLAN - Hypotension-I suspect this was the cause for her decreased level of consciousness at the time of admission. Blood pressure has been much better since she received fluids yesterday and her antihypertensive medications were discontinued. -Hold metoprolol, lisinopril and amlodipine -Hold amitriptyline -physical therapy for weakness Low-grade fever-no localizing symptoms. Examination is benign. Chest x-ray negative. Covid and influenza screen was negative. Urinalysis pending. Could be related to some atelectasis. Stage III chronic kidney disease-creatinine is back to baseline. -Hold antihypertensives as above -Repeat labs in the morning Type 2 diabetes mellitus-on two oral meds. Creatinine is is back to baseline. -Restart Metformin -Continue glipizide Schizophrenia-no behavior issues at this time. -Continue home medications -discontinue amitriptyline Maintenance issues - - DVT prophylaxis -mechanical - GI prophylaxis -not indicated - Nutrition -consistent carbohydrates Disposition -[facility] the [facility] stay Primary care physician - Kelly Rodgers M.D.
[2020-02-23 12:25] LABS: CORONAVIRUS COVID-19 NAA NEGATIVE (NEGATIVE)
[2020-02-23] MEDS: METFORMIN 1000 MG PO SCH (18:05)
[2020-02-23] MEDS: ARIPIPRAZOLE 20 MG PO SCH (20:28)
[2020-02-23] MEDS: ZIPRASIDONE HCL 80 MG PO SCH (20:28)
[2020-02-23] MEDS: Melatonin 3 MG Tab PO SCH (20:28)
[2020-02-23] MEDS ORDERED: Fluconazole 150 MG Tab PO ONE (20:35)
[2020-02-23] MEDS ORDERED: SIMVASTATIN 40 MG PO SCH (21:00)
[2020-02-24] MEDS ORDERED: GLIPIZIDE 10 MG PO SCH (07:30)
[2020-02-24] MEDS: METFORMIN 1000 MG PO SCH (08:46)
[2020-02-24] MEDS: ARIPIPRAZOLE 20 MG PO SCH (08:46)
[2020-02-24] MEDS: LORATADINE 10 MG PO SCH (08:47)
[2020-02-24] MEDS: ASPIRIN 325 MG PO SCH (08:47)
[2020-02-24] MEDS: MAGNESIUM OXIDE 400 MG PO SCH (08:48)
[2020-02-24] MEDS: ZIPRASIDONE HCL 80 MG PO SCH (08:48)
[2020-02-24] MEDS: MEDROXYPROGESTERONE 10 MG PO SCH (08:49)
[2020-02-24] MEDS: Benztropine 1 MG Tab PO SCH (08:51)
[2020-02-24] MEDS ORDERED: OXYBUTYNIN 15 MG PO SCH (09:00)
[2020-02-24] MEDS ORDERED: LAMOTRIGINE 200 MG PO SCH (09:00)
[2020-02-24 11:26] VITALS: BP 109/51; PULSE 111
--- NOTE | 2020-02-24 12:12 | PCM.DCSUM1 ---
Discharge Summary - Hospital Course Brief History: 69-year-old female with history of type 2 diabetes mellitus, schizophrenia and chronic large aortic dissection who presented with hypotension and a decreased level of consciousness. She was admitted for management of hypotension thought secondary to antihypertensive medications. Diagnosis: Stroke: No - Discharge Data Discharge Date: 02/24/20 Discharge Disposition: Home, W Home Health Agency 06 Condition: Good - Referral to Home Health Date of Face to Face Encounter: 02/24/20 Reason for Homebound Status: hypotension due to drug, weakness Primary Care Physician: FELECIA Peck Skilled Need: Nursing and PT - Discharge Diagnosis/Problem(s) (1) Hypotension SNOMED Code(s): 38720584 ICD Code: I95.9 - HYPOTENSION, UNSPECIFIED Status: Acute Qualifiers: Hypotension type: hypotension due to drug Qualified Code(s): I95.2 - Hypotension due to drugs (2) Decreased level of consciousness SNOMED Code(s): 948203647 ICD Code: R41.89 - OTH SYMPTOMS AND SIGNS W COGNITIVE FUNCTIONS AND AWARENESS Status: Acute (3) CKD (chronic kidney disease), stage III SNOMED Code(s): 180065493 ICD Code: N18.30 - CHRONIC KIDNEY DISEASE, STAGE 3 UNSPECIFIED Status: Chronic Qualifiers: Chronic kidney disease stage 3 subtype: stage 3b (GFR 30-44) Qualified Code(s): N18.32 - Chronic kidney disease, stage 3b (4) Schizophrenia SNOMED Code(s): 15223978 ICD Code: F20.9 - SCHIZOPHRENIA, UNSPECIFIED Status: Chronic Qualifiers: Schizophrenia type: schizophreniform disorder Qualified Code(s): F20.81 - Schizophreniform disorder (5) Type 2 diabetes mellitus SNOMED Code(s): 38681934 ICD Code: E11.9 - TYPE 2 DIABETES MELLITUS WITHOUT COMPLICATIONS Status: Chronic Qualifiers: Diabetes mellitus alf insulin use: without medical terminologist use Diabetes mellitus complication status: with other specified complication Qualified Code(s): E11.69 - Type 2 diabetes mellitus with other specified complication - Patient Summary/Data Hospital Course: Wendy presented to the emergency room with hypotension and a decreased level of consciousness. Work-up in the emergency room revealed significant hypotension with systolic blood pressures in the 60s. She was quite obtunded at the time of presentation but did improve quickly with some fluids. Her blood pressure stab ilized after fluid boluses. Mental status improved quickly after fluid boluses. There is no evidence to support infection. Her creatinine was elevated from baseline but did not meet criteria for acute kidney injury. She had a mild lactic acidosis from the poor perfusion with hypotension. She was admitted to the hospital for further management. We did stop all 3 of her antihypertensive medications as well as amitriptyline with concern that this could be contributing to her decreased level of consciousness. Throughout the hospital stay her blood pressure has remained in the normal range without the antihypertensives. Her mental status has returned to baseline and she has done well throughout the course of the hospital stay. She did require supplemental oxygen for a day but has been weaned off with normal saturations on room air. There is no evidence for infection at the time of presentation or during the course of the hospital stay though she did have some low-grade temperature elevations. I suspect these were related to atelectasis. Her Covid and influenza screens were negative. She did work with physical therapy and has improved her strength though she does remain weak. At this point I believe she is stable and safe for discharge home. The caregivers [facility] feel that they can accommodate her and her current situation. She was interested in home care to help improve her strength after discharge home. Medications discontinued during the hospital stay: -Metoprolol -Lisinopril -Amlodipine -Amitriptyline - Patient Instructions Diet: Diabetic Diet Activity: As Tolerated Showering/Bathing: May Shower Other/Special Instructions: 1. You were in the hospital for management of hypotension and a decreased level of consciousness. I suspect that your low blood pressure was the result of too many blood pressure lowering medications. I suspect that the low blood pressure resulted in your weakness and decreased level of consciousness. Your condition has improved after we stopped your blood pressure lowering medications as well as your amitriptyline. I recommend that we discontinue these 4 medications (metoprolol, lisinopril, amlodipine and amitriptyline) at least for the time being. If your blood pressure does start to rise after hospital discharge we may need to consider a low-dose of 1 of these medications potentially. 2. Continue your other home medications as previously prescribed. 3. I have placed a referral to home health care. They will provide nursing and physical therapy services to ease your transition home. 4. Please follow-up with your primary care provider in 1 to 2 weeks to recheck your blood pressure - Discharge Plan *PRESCRIPTION DRUG MONITORING PROGRAM REVIEWED*: Not Applicable *COPY OF PRESCRIPTION DRUG MONITORING REPORT IN PATIENT HILL: Not Applicable Prescriptions/Med Rec: Benztropine [Cogentin] 0.5 mg PO BID #60 tablet Home Medications: Home Meds Aspirin [[place] Aspirin] 325 mg PO DAILY 09/27/14 [History] Levothyroxine 125 mcg PO DAILY 09/27/14 [History] Penicillin V Potassium 2,000 mg PO ASDIRECTED PRN 09/27/14 [History] Simvastatin [Zocor] 40 mg PO BEDTIME 09/27/14 [History] medroxyPROGESTERone [Provera] 10 mg PO DAILY 09/27/14 [History] metFORMIN HCl [Metformin HCl] 1,000 mg PO BID 09/27/14 [History] Loratadine 10 mg PO DAILY 06/19/19 [History] ARIPiprazole [Abilify] 20 mg PO BID 10/22/19 [History] Multivitamin with Folic Acid [Tab-A-Liseth Tablet] 1 tab PO DAILY 10/22/19 [History] lamoTRIgine 400 mg PO DAILY 10/22/19 [History] Acetaminophen 500 mg PO BID 02/11/20 [History] Diclofenac Sodium [Pennsaid] 2 gm TP ASDIRECTED 02/11/20 [History] Fluticasone Propionate [Flonase] 2 sprays NS BID PRN 02/11/20 [History] Methyl Salicylate/Menth/Camph [Bengay Pain Relieving] 1 applic TOP QID PRN 02/11/20 [History] Simethicone [Gas-X] 125 mg PO ASDIRECTED 02/11/20 [History] Tolnaftate [Tinactin] 1 applic TP BID 02/11/20 [History] ziprasidone HCL [Geodon] 80 mg PO BID 02/11/20 [History] Magnesium Oxide 400 mg PO BID 02/22/20 [History] Oxybutynin Chloride [Oxybutynin Chloride ER] 15 mg PO DAILY 02/22/20 [History] glipiZIDE [Glipizide ER] 10 mg PO DAILY 02/22/20 [History] Benztropine [Cogentin] 0.5 mg PO BID #60 tablet 02/24/20 [Rx] Oxygen Therapy Mode: Room Air Patient Handouts: Hypotension, [id number] Referrals: Livia Bernardo PA [Primary Care Provider] - 03/02/20 1:30 pm (1 to 2 weeks -follow-up hospital stay for hypotension and medication changes) - Discharge Summary/Plan Comment DC Time >30 min.: Yes (40-coordinating home care and reviewing medication changes) - Patient Data Vitals - Most Recent: Last Vital Signs Temp 37.2 C 02/24/20 11:00 Pulse 111 H 02/24/20 11:00 Resp 16 02/24/20 11:00 BP 109/51 L 02/24/20 11:00 Pulse Ox 96 02/24/20 11:00 Weight - Most Recent: 73.482 kg I&O - Last 24 hours: Intake & Output 02/23/20 02/24/20 02/24/20 22:59 06:59 14:59 Intake Total 290 240 Output Total 350 Balance 290 -350 240 Lab Results - Last 24 hrs: Laboratory Results - last 24 hr 02/23/20 02/23/20 02/23/20 Range/Units 09:16 16:42 18:00 WBC (4.5-11.0) K/uL RBC (3.30-5.50) M/uL Hgb (12.0-15.0) g/dL Hct (36.0-48.0) % MCV (80-98) fL MCH (27-31) pg MCHC (32-36) % Plt Count (150-400) K/uL Sodium (140-148) mmol/L Potassium (3.6-5.2) mmol/L Chloride (100-108) mmol/L Carbon Dioxide (21-32) mmol/L Anion Gap (5.0-14.0) mmol/L BUN (7-18) mg/dL Creatinine (0.6-1.0) mg/dL Est Cr Clr Drug Dosing mL/min Estimated GFR (MDRD) (>60) Glucose (74-106) mg/dL POC Glucose 215 H (74-106) MG/DL Calcium (8.5-10.1) mg/dL Total Bilirubin (0.2-1.0) mg/dL AST (15-37) U/L ALT (12-78) U/L Alkaline Phosphatase (46-116) U/L Total Protein (6.4-8.2) g/dL Albumin (3.4-5.0) g/dL Globulin (2.3-3.5) g/dL Albumin/Globulin Ratio (1.2-2.2) Urine Color Yellow (YELLOW) Urine Appearance Clear (CLEAR) Urine pH 7.0 (5.0-8.0) Ur Specific [place] 1.015 (1.008-1.030) Urine Protein 30 H (NEGATIVE) mg/dL Urine Glucose (UA) Negative (NEGATIVE) mg/dL Urine Ketones Negative (NEGATIVE) mg/dL Urine Occult Blood Negative (NEGATIVE) Urine Nitrite Negative (NEGATIVE) Urine Bilirubin Negative (NEGATIVE) Urine Urobilinogen 0.2 (0.2-1.0) EU/dL Ur Leukocyte Esterase Negative (NEGATIVE) Urine RBC Not seen (0-5) Urine WBC Not seen (0-5) Ur Epithelial Cells Not seen Amorphous Sediment Not seen Urine Bacteria Rare Urine Mucus Not seen Influenza Type A RNA Negative (NEGATIVE) RSV RNA (INAAT) Negative (NEGATIVE) Influenza Type B RNA Negative (NEGATIVE) SARS-CoV-2 RNA (MARGARET) Negative (NEGATIVE) 02/24/20 02/24/20 02/24/20 Range/Units 04:12 04:12 08:00 WBC 5.8 (4.5-11.0) K/uL RBC 2.90 L (3.30-5.50) M/uL Hgb 8.3 L (12.0-15.0) g/dL Hct 28.1 L (36.0-48.0) % MCV 97 (80-98) fL MCH 29 (27-31) pg MCHC 30 L (32-36) % Plt Count 185 (150-400) K/uL Sodium 137 L (140-148) mmol/L Potassium 4.5 (3.6-5.2) mmol/L Chloride 103 (100-108) mmol/L Carbon Dioxide 28 (21-32) mmol/L Anion Gap 10.5 (5.0-14.0) mmol/L BUN 16 (7-18) mg/dL Creatinine 1.3 H (0.6-1.0) mg/dL Est Cr Clr Drug Dosing 29.34 mL/min Estimated GFR (MDRD) 41 L (>60) Glucose 169 H (74-106) mg/dL POC Glucose 258 H (74-106) MG/DL Calcium 9.1 (8.5-10.1) mg/dL Total Bilirubin 0.3 (0.2-1.0) mg/dL AST 27 (15-37) U/L ALT 35 (12-78) U/L Alkaline Phosphatase 93 (46-116) U/L Total Protein 5.1 L (6.4-8.2) g/dL Albumin 2.0 L (3.4-5.0) g/dL Globulin 3.1 (2.3-3.5) g/dL Albumin/Globulin Ratio 0.7 L (1.2-2.2) Urine Color (YELLOW) Urine Appearance (CLEAR) Urine pH (5.0-8.0) Ur Specific [place] (1.008-1.030) Urine Protein (NEGATIVE) mg/dL Urine Glucose (UA) (NEGATIVE) mg/dL Urine Ketones (NEGATIVE) mg/dL Urine Occult Blood (NEGATIVE) Urine Nitrite (NEGATIVE) Urine Bilirubin (NEGATIVE) Urine Urobilinogen (0.2-1.0) EU/dL Ur Leukocyte Esterase (NEGATIVE) Urine RBC (0-5) Urine WBC (0-5) Ur Epithelial Cells Amorphous Sediment Urine Bacteria Urine Mucus Influenza Type A RNA (NEGATIVE) RSV RNA (INAAT) (NEGATIVE) Influenza Type B RNA (NEGATIVE) SARS-CoV-2 RNA (MARGARET) (NEGATIVE) DUSTY Results - Last 24 hrs: Microbiology 02/23/20 18:06 Wet Prep - Final Vagina Med Orders - Current: Current Medications Acetaminophen (Tylenol) 650 mg PO Q4H PRN PRN Reason: Pain (Mild 1-3)/fever Aripiprazole (Abilify) 0 mg PO BID [facility] Last Admin: 02/24/20 08:46 Dose: 10 mg Documented by: Aspirin (Ecotrin) 325 mg PO DAILY [facility] Last Admin: 02/24/20 08:47 Dose: 325 mg Documented by: Benztropine Mesylate (Cogentin) 0.5 mg PO DAILY [facility] Last Admin: 02/24/20 08:51 Dose: 0.5 mg Documented by: Fluticasone Propionate (Flonase) 0 gm MORRIS BID PRN PRN Reason: ALLERGY Glipizide (Glucotrol Xl) 0 mg PO ACBREAKFAST [facility] Last Admin: 02/24/20 08:43 Dose: 5 mg Documented by: Loratadine (Claritin) 10 mg PO DAILY [facility] Last Admin: 02/24/20 08:47 Dose: 10 mg Documented by: Lorazepam (Ativan) 0.5 mg IVPUSH Q4H PRN PRN Reason: Nausea/Vomiting Magnesium Hydroxide (Milk Of Magnesia) 30 ml PO Q12H PRN PRN Reason: Constipation Magnesium Oxide (Magnesium Oxide) 400 mg PO BID [facility] Last Admin: 02/24/20 08:48 Dose: 400 mg Documented by: Medroxyprogesterone Acetate (Provera) 10 mg PO DAILY [facility] Stop: 03/26/20 09:01 Melatonin (Melatonin) 9 mg PO BEDTIME [facility] Last Admin: 02/23/20 20:28 Dose: 9 mg Documented by: Metformin HCl (Glucophage) 0 mg PO BIDMEALS [facility] Last Admin: 02/24/20 08:46 Dose: 500 mg Documented by: Lamotrigine 200 Mg (TabPom) 0 each PO DAILY [facility] Last Admin: 02/24/20 08:49 Dose: 1 each Documented by: Levothyroxine 125mcg (TabPom) 0 each PO ACBREAKFAST [facility] Last Admin: 02/24/20 08:43 Dose: 1 each Documented by: Ondansetron HCl (Zofran) 4 mg IV Q6H PRN PRN Reason: Nausea/Vomiting Ondansetron HCl (Zofran Odt) 4 mg PO Q6H PRN PRN Reason: Nausea able to take PO Oxybutynin Chloride (Oxybutynin) 0 mg PO DAILY [facility] Last Admin: 02/24/20 08:49 Dose: 5 mg Documented by: Senna/Docusate Sodium (Senna Plus) 1 tab PO BID PRN PRN Reason: Constipation Simvastatin (Zocor) 0 mg PO BEDTIME [facility] Last Admin: 02/23/20 20:28 Dose: 20 mg Documented by: Sodium Chloride (Saline Flush) 10 ml FLUSH ASDIRECTED PRN PRN Reason: Keep Vein Open Last Admin: 02/22/20 09:01 Dose: 10 ml Documented by: Ziprasidone (Geodon) 0 mg PO BID [facility] Last Admin: 02/24/20 08:48 Dose: 20 mg Documented by: Discontinued Medications Aripiprazole (Abilify) 20 mg PO BID [facility] Last Admin: 02/23/20 09:15 Dose: 20 mg Documented by: Fluconazole (Diflucan) 150 mg PO ONETIME ONE Stop: 02/23/20 20:36 Last Admin: 02/23/20 20:55 Dose: 150 mg Documented by: Glipizide (Glucotrol Xl) 10 mg PO ACBREAKFAST [facility] Last Admin: 02/23/20 09:16 Dose: 10 mg Documented by: Lactated Ringer's (Ringers, Lactated) 1,000 mls @ 999 mls/hr IV ASDIRECTED [facility] Last Admin: 02/22/20 09:00 Dose: 999 mls/hr Documented by: Lactated Ringer's (Ringers, Lactated) 1,000 mls @ 999 mls/hr IV ASDIRECTED [facility] Last Admin: 02/22/20 10:15 Dose: 999 mls/hr Documented by: Lamotrigine (Lamotrigine) 300 mg PO DAILY [facility] Last Admin: 02/23/20 09:14 Dose: 300 mg Documented by: Levothyroxine Sodium 100 mcg/ (Levothyroxine Sodium 25 mcg) 125 mcg PO ACBREAKFAST [facility] Last Admin: 02/23/20 09:14 Dose: 125 mcg Documented by: Medroxyprogesterone Acetate (Provera) 10 mg PO DAILY [facility] Stop: 02/24/20 09:01 Last Admin: 02/24/20 08:49 Dose: 10 mg Documented by: Oxybutynin Chloride (Oxybutynin) 7.5 mg PO BID [facility] Last Admin: 02/23/20 09:16 Dose: 7.5 mg Documented by: Simvastatin (Zocor) 40 mg PO BEDTIME [facility] Last Admin: 02/22/20 20:30 Dose: 40 mg Documented by: Ziprasidone (Geodon) 80 mg PO BID [facility] Last Admin: 02/23/20 09:17 Dose: 80 mg Documented by:
[2020-03-13] MEDS ORDERED: MEDROXYPROGESTERONE 10 MG PO SCH (09:00)
== END 2020-02-24 14:21 | disposition home health service (06) ==
LOC: JP.ED 08:48 → JP.MS 12:56
PROVIDERS: ADMIT Internal Medicine; ATTEND Internal Medicine
DX: I95.9 Hypotension, unspecified (principal); R41.89 Other symptoms and signs involving cognitive functions and awareness; N18.32 Chronic kidney disease, stage 3b; E11.22 Type 2 diabetes mellitus with diabetic chronic kidney disease; I12.9 Hypertensive chronic kidney disease with stage 1 through stage 4 chronic kidney disease, or unspecified chronic kidney disease; E78.00 Pure hypercholesterolemia, unspecified; J44.9 Chronic obstructive pulmonary disease, unspecified; E03.9 Hypothyroidism, unspecified; E66.9 Obesity, unspecified; F17.210 Nicotine dependence, cigarettes, uncomplicated; Z20.822 Contact with and (suspected) exposure to COVID-19; Z88.1 Allergy status to other antibiotic agents; Z88.8 Allergy status to other drugs, medicaments and biological substances; Z79.899 Other long term (current) drug therapy; Z79.890 Hormone replacement therapy; Z79.84 Long term (current) use of oral hypoglycemic drugs; Z79.82 Long term (current) use of aspirin; Z68.34 Body mass index [BMI] 34.0-34.9, adult
CPT/HCPCS: 0241U; 36415; 70450; 71045; 80048; 80053; 81001; 82962; 83605; 84484; 85025; 85027; 85610; 87210; 99285; A9270; G0378; J7120